=== PATIENT | female | born 1975 | race Caucasian/White ===

== ENCOUNTER 2019-09-21 14:41 | Emergency (ER) | payer OTHER, SELFPAY ==
[2019-09-21] MEDS ORDERED: LORAZEPAM 0.5 MG TABLET ONE (15:20)
[2019-09-21 15:49] LABS: Absolute Lymphocytes (CBC) 2.1 K/uL (0.7-4.9); Basophils % 0.9 % (0-1.3); Hematocrit 45.5 % (36.0-45.0); Lymphocytes % 22.3 % (15.3-44.8); MPV 7.5 fL (7.6-11.3); RBC Red Blood Cell Count 4.93 M/uL (3.86-4.86)
[2019-09-21 16:16] LABS: Thyroid Stimulating Hormone 2.01 uIU/mL (0.360-3.740)
[2019-09-21 16:20] LABS: Potassium 4.5 mmol/L (3.5-5.1)
[2019-09-21] MEDS ORDERED: INSULIN -REGULAR HUMAN 50 UNIT/0.5 ML ML ONE (17:43)
[2019-09-21] MEDS ORDERED: NA CHLORIDE 0.9% 500 ML ONE (17:43)
--- NOTE | 2019-09-21 18:35 | ER ---
Nurse's Notes [facility] Name: Chelsi Brice Age: 44 yrs Sex: Female : 1975 Arrival Date: 09/21/2019 Time: 14:42 Bed 18 Private MD: Diagnosis: Chest pain, unspecified;Dehydration Presentation: 09/20 14:53 Chief complaint: Patient states: Reports having a AL 1 month ago, 2 stents placed at [address] in [place], started having non-radiating mid-sternal chest pressure this morning, rated 3/10. Coronavirus screen: The patient has NOT traveled to a country currently being monitored by the [facility] within the last 14 days. Proceed with normal triage procedures. Ebola Screen: No symptoms or risks identified at this time. Initial Sepsis Screen: Does the patient meet any 2 criteria? No. Patient's initial sepsis screen is negative. Does the patient have a suspected source of infection? No. Patient's initial sepsis screen is negative. Risk Assessment: Do you want to hurt yourself or someone else? Patient reports no desire to harm self or others. Onset of symptoms was September 21, 2019 at 09:00. 14:53 Method Of Arrival: Ambulatory [facility] 14:53 Acuity: EDIS 3 jl7 Triage Assessment: 14:57 General: Appears in no apparent distress. uncomfortable, Behavior is calm, cooperative, jl7 appropriate for age. Pain: Complains of pain in mid-sternal area Pain does not radiate. Pain currently is 3 out of 10 on a pain scale. Quality of pain is described as pressure, Pain began Is continuous. Cardiovascular: Patient's skin is warm and dry. 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 - Social history:: Smoking status: Patient/guardian denies using tobacco, Stopped _ months ago 1. Screenin:13 Abuse screen: Denies threats or abuse. Nutritional screening: No deficits noted. rb1 Tuberculosis screening: No symptoms or risk factors identified. Fall Risk None identified. Assessment: 15:13 General: Appears in no apparent distress. comfortable, Behavior is anxious, Denies rb1 fever. Pain: Complains of pain in mid-sternal area Pain currently is 2 out of 10 on a pain scale. Quality of pain is described as pressure. Neuro: Level of Consciousness is awake, alert, obeys commands, Oriented to person, place, time, situation, Pt. is trembling but reports that is normal for her.. Denies headache. Neuro: Denies blurred vision. Cardiovascular: Capillary refill < 3 seconds is brisk in bilateral fingers. Respiratory: Airway is patent Respiratory effort is even, unlabored, Respiratory pattern is regular, symmetrical. Respiratory: Reports shortness of breath Denies cough. GI: No signs and/or symptoms were reported involving the gastrointestinal system. : No signs and/or symptoms were reported regarding the genitourinary system. Derm: Skin is pink, warm \T\ dry. Musculoskeletal: Range of motion: intact in all extremities. 16:10 Reassessment: Patient appears in no apparent distress at this time. Patient and/or rb1 family updated on plan of care and expected duration. Pain level reassessed. Patient is alert, oriented x 3, equal unlabored respirations, skin warm/dry/pink. Patient states feeling better. 17:10 Reassessment: Patient appears in no apparent distress at this time. No changes from rb1 previously documented assessment. Family at the bedside. 17:56 Reassessment: Pt c/o pain at the IV site, IV infiltrated, minimal swelling noted, no rb1 redness noted. Provider notified. Received verbal order to discontinue the IV fluids and the pt. can watch her BS at home and take her home insulin. 100% read back. 18:35 Reassessment: Patient appears in no apparent distress at this time. Patient and/or rb1 family updated on plan of care and expected duration. Pain level reassessed. Patient is alert, oriented x 3, equal unlabored respirations, skin warm/dry/pink. Patient states feeling better. Vital Signs: 14:53 BP 136 / 95; Pulse 91; Resp 16; Temp 98.2(O); Pulse Ox 99% on R/A; Pain 3/10; jl7 15:51 BP 131 / 93; Pulse 83; Resp 14; Temp 98.0(O); Pulse Ox 94% on R/A; mh5 16:54 BP 111 / 76; Pulse 80; Resp 16; Temp 97.9(TE); Pulse Ox 97% on R/A; mh5 17:54 BP 112 / 78; Pulse 85; Resp 14; Pulse Ox 100% on R/A; rb1 18:35 BP 111 / 73; Pulse 81; Resp 16; Pulse Ox 95% on R/A; rb1 ED Course: 14:42 Patient arrived in ED. ag5 14:55 Triage completed. jl7 14:57 Arm band placed on right wrist. jl7 15:13 Elda Sims, RN is Primary Nurse. rb1 15:13 Patient has correct armband on for positive identification. Placed in gown. Bed in low rb1 position. Call light in reach. Side rails up X 1. monitor car operator on. Pulse ox on. NIBP on. Warm blanket given. 15:13 Patient maintains SpO2 saturation greater than 95% on room air. rb1 15:21 Claud[facility] Dav[facility]-C [facility]. snw 15:21 Oli Plaza MD is Attending Physician. snw 15:50 Initial lab(s) drawn, by il, sent to lab. Inserted saline lock: 22 gauge in right 5 antecubital area, using aseptic technique. Blood collected. 15:54 Chem 7 Sent. 5 15:54 CBC with Diff Sent. [facility] 15:54 TSH Sent. [facility] 15:54 Troponin (emerg Dept Use Only) Sent. [facility] 18:50 No provider procedures requiring assistance completed. IV discontinued, intact, rb1 bleeding controlled, No redness/swelling at site. Pressure dressing applied. Administered Medications: 15:17 Drug: Ativan 0.5 mg Route: PO; rb1 17:45 Drug: NS 0.9% 500 ml Route: IV; Rate: bolus; Site: right antecubital; rb1 17:45 Drug: Insulin Regular Human 2 units {Co-Signature: mg2 (Sean Cast RN).} Route: rb1 IVP; Site: right antecubital; Outcome: 18:33 Discharge ordered by . snw 18:50 Discharged to home ambulatory, with family. rb1 18:50 Condition: stable 18:50 Discharge instructions given to patient, Instructed on discharge instructions, follow up and referral plans. medication usage, Demonstrated understanding of instructions, follow-up care, medications, Prescriptions given X 1. 18:51 Patient left the ED. rb1 Signatures: Claudia Davila, SILVICULTURE TEACHER-C SILVICULTURE TEACHER-Csnw Elda Sims, RN RN rb1 Leatha Hernández 5 Arjun Saunders RN RN jl7 Kaylah Hale 5 Sean Cast RN mg2
--- NOTE | 2019-09-21 18:36 | EDPHYS ---
Physician Documentation [facility] Name: Chelsi Brice Age: 44 yrs Sex: Female : 1975 Arrival Date: 09/21/2019 Time: 14:42 Bed 18 Private MD: ED Physician Oli Plaza HPI: 09/20 15:32 This 44 yrs old Female presents to ER via Ambulatory with complaints of Chest snw Pain, Shortness Of Breath. 15:32 Onset: The symptoms/episode began/occurred suddenly, this morning. Associated signs and snw symptoms: Pertinent positives: shortness of breath, anxiety. Modifying factors: The patient symptoms are alleviated by nothing. The patient has experienced similar episodes in the past, multiple times. pt had STEMI last month and is having trouble differentiating s/s of panic attack and NV. Stopped smoking but continues vaping. 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 - Social history:: Smoking status: Patient/guardian denies using tobacco, Stopped _ months ago 1. ROS: 15:30 Constitutional: Negative for fever, chills, and weight loss, Eyes: Negative for injury, snw pain, redness, and discharge, ENT: Negative for injury, pain, and discharge, Neck: Negative for injury, pain, and swelling. 15:30 Abdomen/GI: Negative for abdominal pain, nausea, vomiting, diarrhea, and constipation, Back: Negative for injury and pain, : Negative for injury, bleeding, discharge, and swelling, MS/Extremity: Negative for injury and deformity, Skin: Negative for injury, rash, and discoloration, Neuro: Negative for headache, weakness, numbness, tingling, and seizure. 15:30 Cardiovascular: Positive for chest pain. 15:30 Respiratory: Positive for shortness of breath, at rest. 15:30 Endocrine: Positive for night sweats. Exam: 15:30 Constitutional: This is a well developed, well nourished patient who is awake, alert, snw and anxious. Head/Face: Normocephalic, atraumatic. Eyes: Pupils equal round and reactive to light, extra-ocular motions intact. Lids and lashes normal. Conjunctiva and sclera are non-icteric and not injected. Cornea within normal limits. Periorbital areas with no swelling, redness, or edema. ENT: Nares patent. No nasal discharge, no septal abnormalities noted. Tympanic membranes are normal and external auditory canals are clear. Oropharynx with no redness, swelling, or masses, exudates, or evidence of obstruction, uvula midline. Mucous membranes moist. Neck: Trachea midline, no thyromegaly or masses palpated, and no cervical lymphadenopathy. Supple, full range of motion without nuchal rigidity, or vertebral point tenderness. No Meningismus. Chest/axilla: Normal chest wall appearance and motion. Nontender with no deformity. No lesions are appreciated. Cardiovascular: Regular rate and rhythm with a normal S1 and S2. No gallops, murmurs, or rubs. Normal PMI, no JVD. No pulse deficits. Respiratory: Lungs have equal breath sounds bilaterally, clear to auscultation and percussion. No rales, rhonchi or wheezes noted. No increased work of breathing, no retractions or nasal flaring. Abdomen/GI: Soft, non-tender, with normal bowel sounds. No distension or tympany. No guarding or rebound. No evidence of tenderness throughout. Back: No spinal tenderness. No costovertebral tenderness. Full range of motion. Skin: Warm, dry with normal turgor. Normal color with no rashes, no lesions, and no evidence of cellulitis. MS/ Extremity: Pulses equal, no cyanosis. Neurovascular intact. Full, normal range of motion. Neuro: Awake and alert, GCS 15, oriented to person, place, time, and situation. Cranial nerves II-XII grossly intact. Motor strength 5/5 in all extremities. Sensory grossly intact. Cerebellar exam normal. Normal gait. Psych: Awake, alert, with orientation to person, place and time. Behavior, mood, and affect are within normal limits. Vital Signs: 14:53 BP 136 / 95; Pulse 91; Resp 16; Temp 98.2(O); Pulse Ox 99% on R/A; Pain 3/10; jl7 15:51 BP 131 / 93; Pulse 83; Resp 14; Temp 98.0(O); Pulse Ox 94% on R/A; mh5 16:54 BP 111 / 76; Pulse 80; Resp 16; Temp 97.9(TE); Pulse Ox 97% on R/A; mh5 17:54 BP 112 / 78; Pulse 85; Resp 14; Pulse Ox 100% on R/A; rb1 18:35 BP 111 / 73; Pulse 81; Resp 16; Pulse Ox 95% on R/A; rb1 MDM: 15:23 Patient medically screened. snw 18:36 Data reviewed: vital signs, nurses notes. Data interpreted: Pulse oximetry: on room air snw is 100 %. Interpretation: normal. Counseling: I had a detailed discussion with the patient and/or guardian regarding: the historical points, exam findings, and any diagnostic results supporting the discharge/admit diagnosis, lab results, radiology results, the need for outpatient follow up, to return to the emergency department if symptoms worsen or persist or if there are any questions or concerns that arise at home. Counseling: I had a detailed discussion with the patient and/or guardian regarding: smoking cessation. Response to treatment: the patient's symptoms have resolved after treatment. Special discussion: Based on the patient's history, exam, and Dx evaluation, there is no indication for emergent intervention or inpatient Tx. It is understood by the patient/guardian that if the Sx's persist or worsen they need to return immediately for re-evaluation. Based on the history and exam findings, there is no indication for further emergent testing or inpatient evaluation. I discussed with the patient/guardian the need to see the wire lather for further evaluation of the symptoms. I discussed with the patient/guardian the need to see the primary care provider for further evaluation of the symptoms. 09/20 15:22 Order name: Troponin (emerg Dept Use Only) snw 09/20 15:30 Order name: TSH snw 09/20 15:30 Order name: CBC with Diff snw 09/20 15:30 Order name: Chem 7 snw 09/20 15:54 Order name: Glucose, Ancillary Testing; Complete Time: 15:55 EDMS 09/20 16:00 Order name: CBC with Automated Diff; Complete Time: 16:04 EDMS 09/20 15:22 Order name: EKG; Complete Time: 15:22 snw 09/20 15:22 Order name: EKG - Nurse/Tech; Complete Time: 15:25 snw 09/20 16:09 Order name: Troponin (Emerg Dept Use Only); Complete Time: 16:22 EDWI 09/20 16:21 Order name: Basic Metabolic Panel; Complete Time: 16:22 EDWI 09/20 16:21 Order name: Thyroid Stimulating Hormone; Complete Time: 16:22 [facility] 09/20 15:22 Order name: FSBS; Complete Time: 15:54 snw Administered Medications: 15:17 Drug: Ativan 0.5 mg Route: PO; rb1 17:45 Drug: NS 0.9% 500 ml Route: IV; Rate: bolus; Site: right antecubital; rb1 17:45 Drug: Insulin Regular Human 2 units {Co-Signature: mg2 (Sean Cast RN).} Route: rb1 IVP; Site: right antecubital; Disposition: 09/21 07:59 Co-signature as Attending Physician, Oli Plaza MD I agree with the assessment and kdr plan of care. Disposition: 09/21/19 18:33 Discharged to Home. Impression: Chest pain, unspecified, Dehydration. - Condition is Stable. - Discharge Instructions: Nonspecific Chest Pain, Hyperglycemia, Smoking Hazards, Form - Daily Diabetes Record, Rehydration, Adult. - Prescriptions for promethazine 25 mg Oral Tablet - take 1 tablet by ORAL route every 6 hours As needed; 20 tablet. - Work release form, Medication Reconciliation Form, Thank You Letter, Antibiotic Education, Prescription Opioid Use form. - Follow up: Emergency Department; When: As needed; Reason: Worsening of condition. Follow up: Private Physician; When: 2 - 3 days; Reason: Recheck today's complaints, Continuance of care, Re-evaluation by your physician. Signatures: Dispatcher [employer] [facility] Oli Plaza MD MD kdr Therrien, Shelly, PUBLICATIONS SALES REPRESENTATIVE-C PUBLICATIONS SALES REPRESENTATIVE-Csnw Elda Sims, RN RN rb1 Arjun Saunders RN RN jl7 Sean Cast RN mg2 Corrections: (The following items were deleted from the chart) 09/20 18:51 18:33 09/21/2019 18:33 Discharged to Home. Impression: Chest pain, unspecified; rb1 Dehydration. Condition is Stable. Forms are Medication Reconciliation Form, Thank You Letter, Antibiotic Education, Prescription Opioid Use. Follow up: Emergency Department; When: As needed; Reason: Worsening of condition. Follow up: Private Physician; When: 2 - 3 days; Reason: Recheck today's complaints, Continuance of care, Re-evaluation by your physician. bita
[2019-09-21 19:37] VITALS: TEMP 97.9
[2019-09-21 19:40] VITALS: BP 111/73; O2SAT 95
--- NOTE | 2019-09-22 07:30 | EKG ---
Test Date: 2019-09-21 Test Time: 15:17:52 Relay Checker: DARA MEASUREMENT RESULTS: Intervals: Rate: 88 IN: 158 QRSD: 74 QT: 366 QTc: 442 [place]: P: 56 IN: 158 QRS: 11 T: 55 INTERPRETIVE STATEMENTS: Normal sinus rhythm Low voltage QRS Borderline ECG No previous ECG available for comparison Electronically Signed On 09-22-19 07:27:54 CDT by Christopher Ferguson
== END 2019-09-21 18:51 | disposition home or self-care (01) ==
LOC: ER 14:41
DX: E86.0 Dehydration (principal); I25.2 Old myocardial infarction; F17.290 Nicotine dependence, other tobacco product, uncomplicated; Z95.818 Presence of other cardiac implants and grafts
CPT/HCPCS: 36415; 80048; 82947; 84443; 84484; 85025; 93005; 96374; 99285; J7040

== ENCOUNTER 2021-09-16 12:54 | Emergency (ER) | payer OTHER ==
--- OUTSIDE RECORDS SUMMARY | 2021-09-16 12:59 | XMS REPORT | Continuity of Care Document ---
:1975 Author Organization [facility] t Address [address] [place] [address] Care Team Providers Name Role Phone UNKNOWN Primary Care Physician Unavailable Demetria Muñoz Attending Clinician Unavailable Demetria Muñoz Attending Clinician Unavailable Lucina SAXENA Attending Clinician Unavailable YADIEL BILLINGSLEY M.D. Attending Clinician Unavailable Demetria Muñoz Admitting Clinician Unavailable Lucina SAXENA Admitting Clinician Unavailable YADIEL BILLINGSLEY M.D. Admitting Clinician Unavailable Problems This patient has no known problems. Allergies, Adverse Reactions, Alerts Allergy Allergy Status Severity Reaction(s) Onset Inactive Treating Comm ents Source Name Type Date Date Clinician No Known DA Active [facility] Drug 4-16 Allergie 00:00: s 00 NO KNOWN Allergy Active [facility] No Known Drug Active [facility] Medications This patient has no known medications. Vital Signs Vital Name Observation Time Observation Value Comments Source Height/Length Measured 2021-07-29 12:48:17 157.4 cm Height/Length Dosing 2021-07-29 12:48:17 157.48 cm Weight Dosing 2021-07-29 12:48:17 97.52 kg Height/Length Measured 2021-07-29 12:46:32 157.4 cm Height/Length Dosing 2021-07-29 12:46:32 157.48 cm Weight Dosing 2021-07-29 12:46:32 97.52 kg Height/Length Measured 2021-07-29 12:45:51 157.4 cm Height/Length Dosing 2021-07-29 12:45:51 157.48 cm Weight Dosing 2021-07-29 12:45:51 97.52 kg Height/Length Measured 2021-07-29 12:44:39 157.4 cm Height/Length Dosing 2021-07-29 12:44:39 157.48 cm Weight Dosing 2021-07-29 12:44:39 97.52 kg Height/Length Measured 2021-07-29 12:44:23 157.4 cm Height/Length Dosing 2021-07-29 12:44:23 157.48 cm Weight Dosing 2021-07-29 12:44:23 97.52 kg Height/Length Measured 2021-07-29 12:44:06 157.4 cm Height/Length Dosing 2021-07-29 12:44:06 157.48 cm Weight Dosing 2021-07-29 12:44:06 97.52 kg Height/Length Measured 2021-07-29 12:43:45 157.5 cm Height/Length Dosing 2021-07-29 12:43:45 157.48 cm Weight Dosing 2021-07-29 12:43:45 97.52 kg Height/Length Measured 2021-07-29 12:43:44 157.5 cm Height/Length Measured 2021-07-29 12:43:41 157.5 cm Height/Length Measured 2021-07-29 12:43:39 157.5 cm Height/Length Measured 2021-07-29 12:43:38 157.5 cm Height/Length Measured 2020-04-16 01:26:37 Height/Length Measured 2020-04-16 01:06:56 Weight Dosing 2020-04-15 23:58:21 Height/Length Dosing 2020-04-15 23:58:21 Height/Length Measured 2020-04-15 19:32:32 02 Sat by Pulse Oximetry 2020-11-20 15:15:30 99 /min Body Mass Index 2020-11-20 15:15:30 47.2 Height 2020-11-20 15:15:30 154.94\\S\\61 Pulse Rate 2020-11-20 15:15:30 73 /min Pulse Strength 2020-11-20 15:15:30 Normal /min Pulse Assessment Method 2020-11-20 15:15:30 Palpation /min Respiratory Rate 2020-11-20 15:15:30 12 /min Weight 2020-11-20 15:15:30 011437.092\\S\\4000 Weight Measurement Method 2020-11-20 15:15:30 Estimated by Patient 02 Sat by Pulse Oximetry 2020-10-30 10:08:11 99 /min Body Mass Index 2020-10-30 10:08:11 47.2 Height 2020-10-30 10:08:11 154.94\\S\\61 Pulse Rate 2020-10-30 10:08:11 73 /min Pulse Strength 2020-10-30 10:08:11 Normal /min Pulse Assessment Method 2020-10-30 10:08:11 Palpation /min Respiratory Rate 2020-10-30 10:08:11 12 /min Weight 2020-10-30 10:08:11 437509.092\\S\\4000 Weight Measurement Method 2020-10-30 10:08:11 Estimated by Patient 02 Sat by Pulse Oximetry 2020-10-26 00:12:00 99 /min Body Mass Index 2020-10-26 00:12:00 47.2 Height 2020-10-26 00:12:00 154.94\\S\\61 Pulse Rate 2020-10-26 00:12:00 73 /min Pulse Strength 2020-10-26 00:12:00 Normal /min Pulse Assessment Method 2020-10-26 00:12:00 Palpation /min Respiratory Rate 2020-10-26 00:12:00 12 /min Weight 2020-10-26 00:12:00 [id number]\\S\\4000 Weight Measurement Method 2020-10-26 00:12:00 Estimated by Patient Body Mass Index 2020-10-25 10:07:51 47.2 Height 2020-10-25 10:07:51 154.94\\S\\61 Weight 2020-10-25 10:07:51 750997.092\\S\\4000 Weight Measurement Method 2020-10-25 10:07:51 Estimated by Patient WEIGHT 2020-10-25 10:06:00 113.043601 kg HEIGHT 2020-10-25 10:06:00 154.94 cm Procedures This patient has no known procedures. Encounters Start End Encounter Admission Attending Care Care Encounter Source Date/Time Date/Time Type Type Clinicians Facility Department ID 2020-04-15 2020-04-19 Inpatient 1 Gregorio Muñoz [facility] PSY [id number] St. 19:14:00 14:20:00 Gregorio Muñoz [facility] 2020-04-15 2020-04-15 Inpatient 1 Gregorio Muñoz [facility] PSY [id number] St. 19:14:00 19:14:00 Gregorio Muñoz -2019 1005 [facility] Results Test Description Test Time Test Comments Results Result Comments Source POC Glucose 2020-04-19 12:03:31 Test Item Value Reference Range Interpretation Comme nts Glucose POC (test code = 265 mg/dL 70-115 H Not fara RN or MDIf you consider your Glucose POC) patient critica lly ill, the [employer] Infrom II meter should not be u sed for Glucose determination. Draw a venous Glucose and send to the main Lab for analysis. POC [id number] 06:15:01 Test Item Value Reference Range Interpretation Comments Glucose POC (test 268 mg/dL 70-115 H Notify RN or MDIf you code = Glucose POC) consider your patient critically ill, the [employer] Infrom II meter should not be used for Glucos e determination. Draw a venous Glucose and send to the main Lab for analysis. POC [id number] 19:20:02 Test Item Value Reference Range Interpretation Comments Glucose POC (test 328 mg/dL 70-115 H If you con nuclear waste process operator your code = Glucose POC) patient critically ill, the [employer] Check Infrom II meter should not be used for Glucose determination. Draw a venous Glucose and send to the main Lab for analysis. POC [id number] 16:23:31 Test Item Value Reference Range Interpretation Comments Glucose POC (test 245 mg/dL 70-115 H Notify RN or MDIf you code = Glucose POC) consider your patient critically ill, the [employer] Infrom II meter should not be used for Glucos e determination. Draw a venous Glucose and send to the main Lab for analysis. POC [id number] 11:46:01 Test Item Value Reference Range Interpretation Comments Glucose POC (test 207 mg/dL 70-115 H Notify RN or MDIf you code = Glucose POC) consider your patient critically ill, the [employer] Infrom II meter should not be used for Glucos e determination. Draw a venous Glucose and send to the main Lab for analysis. POC [id number] 05:59:29 Test Item Value Reference Range Interpretation Comments Glucose POC (test 209 mg/dL 70-115 H If you con nuclear waste process operator your code = Glucose POC) patient critically ill, the [employer] Check Infrom II meter should not be used for Glucose determination. Draw a venous Glucose and send to the main Lab for analysis. POC [id number] 19:22:06 Test Item Value Reference Range Interpretation Comments Glucose POC (test 248 mg/dL 70-115 H Notify RN or MDIf you code = Glucose POC) consider your patient critically ill, the [employer] Infrom II meter should not be used for Glucos e determination. Draw a venous Glucose and send to the main Lab for analysis. POC [id number] 16:07:29 Test Item Value Reference Range Interpretation Comments Glucose POC (test 234 mg/dL 70-115 H If you con nuclear waste process operator your code = Glucose POC) patient critically ill, the [employer] Check Infrom II meter should not be used for Glucose determination. Draw a venous Glucose and send to the main Lab for analysis. POC [id number] 12:08:04 Test Item Value Reference Range Interpretation Comments Glucose POC (test 228 mg/dL 70-115 H Notify RN or MDIf you code = Glucose POC) consider your patient critically ill, the [employer] k Infrom II meter should not be used for Glucos e determination. Draw a venous Glucose and send to the main Lab for analysis. POC [id number] 07:42:04 Test Item Value Reference Range Interpretation Comments Glucose POC (test 225 mg/dL 70-115 H Notify RN or MDIf you code = Glucose POC) consider your patient critically ill, the [employer] Infrom II meter should not be used for Glucos e determination. Draw a venous Glucose and send to the main Lab for analysis. RPR [id number] 21:08:15 Test Item Value Reference Range Interpretation Comments RPR Qual (test code = RPR Qual) Non-Reactive Non-Reactive Reactive Control (test code = Reactive Reactive Control) Weak Reactive Control (test Weak Reactive code = Weak Reactive Control) Non-Reactive Control (test code Non-Reactive = Non-Reactive Control) Lot # (test code = Lot #) [id number] Expiration Dt (test code = 04-10-2021 N Expiration Dt) POC [id number] 19:40:57 Test Item Value Reference Range Interpretation Comments Glucose POC (test 312 mg/dL 70-115 H If you con nuclear waste process operator your code = Glucose POC) patient critically ill, the [employer] Check Infrom II meter should not be used for Glucose determination. Draw a venous Glucose and send to the main Lab for analysis. POC [id number] 15:02:57 Test Item Value Reference Range Interpretation Comments Glucose POC (test 288 mg/dL 70-115 H Notify RN or MDIf you code = Glucose POC) consider your patient critically ill, the [employer] Infrom II meter should not be used for Glucos e determination. Draw a venous Glucose and send to the main Lab for analysis. POC [id number] 11:08:28 Test Item Value Reference Range Interpretation Comments Glucose POC (test 210 mg/dL 70-115 H Notify RN or MDIf you code = Glucose POC) consider your patient critically ill, the [employer] k Infrom II meter should not be used for Glucos e determination. Draw a venous Glucose and send to the main Lab for analysis. Urine [id number] 08:33:09 Test Item Value Reference Range Interpretation Comments ORGANISM (test code = Escherichia coli ORGANISM) Amikacin (test code = S Amik) Ampicillin (test code = S Amp) Ampicillin/Sulbactam S (test code = Amp/Sul) Cefazolin (test code = S Cefaz) Cefepime (test code = S Cefep) Cefotaxime (test code = S Cefo) Ceftazidime (test code = S Ceftaz) Ceftriaxone (test code = S Ceftri) Cefuroxime (test code = S Cefur) Ciprofloxacin (test code R = Cipro) Gentamicin (test code = S Gent) Imipenem (test code = S Imi) Levofloxacin (test code R = Levo) Meropenem (test code = S Joanna) Nitrofurantoin (test S code = Nitro) Piperacillin/Tazobactam S (test code = Pip/Jesus) Tobramycin (test code = S Tobra) Trimethoprim/Sulfa (test S code = SXT) ORGANISM (test code = Klebsiella pneumoniae ORGANISM3) Amikacin (test code = S Amik) Ampicillin (test code = R Amp) Ampicillin/Sulbactam R (test code = Amp/Sul) Cefazolin (test code = R Cefaz) Cefepime (test code = S Cefep) Cefotaxime (test code = S Cefo) Ceftazidime (test code = S Ceftaz) Ceftriaxone (test code = R Ceftri) Cefuroxime (test code = I Cefur) Ciprofloxacin (test code R = Cipro) Gentamicin (test code = S Gent) Imipenem (test code = S Imi) Levofloxacin (test code R = Levo) Meropenem (test code = S Joanna) Nitrofurantoin (test S code = Nitro) Piperacillin/Tazobactam S (test code = Pip/Jesus) Tobramycin (test code = S Tobra) Trimethoprim/Sulfa (test S code = SXT) Final Report (test code >=100,000 cfu/ml = Final Report) Escherichia coli >=100,000 cfu/ml Klebsiella pneumoniae >=100,000 cfu/ml Diphtheroids C Urine Added by [id number] 08:28:37 Test Item Value Reference Range Interpretation Comments Cholesterol Total 139 mg/dL N Low-risk l evel (test code = (desirable) - < 200 Cholesterol Total) mg/dlMode rate-risk level (borderli ne) - 200-239 mg/dlHigh-risk level - ?240 mg/dl Triglycerides (test 180 mg/dL N Normal - <150 code = Triglycerides) mg/dlB orderline high - 150-199 mg/dl High - 200-499 mg/dl Very high - ?500 mg/ dl HDL (test code = HDL) 41.50 mg/dL N Low-ri sk level (desirable) - ? 60 mg/dlHigh-risk level (undesirable) - <40 mg/dl LDL (test code = LDL) 62 mg/dL N The eq uation being used in this calculation is LDL = (Chol - HDL) - (Trig / 5) VLDL (test code = 36 mg/dL 5-40 The equati on being VLDL) used in this calculation is VLDL = Trig / 5 Chol/HDL (test code = 3.3 ratio <=5.0 Chol/HDL) LDL/HDL Ratio (test 3 N The equa tion being code = LDL/HDL Ratio) used i n this calculation is LDL/HDL Ratio=L DL Calc/HDL Chol Thyroid Stimulating [id number] 08:28:37 Test Item Value Reference Range Interpretation Comments TSH (test code = TSH) 3.062 mcIU/mL 0.550-4.780 Hemoglobin [id number] 08:26:29 Test Item Value Reference Range Interpretation Comments Hemoglobin A1c (test code 10.1 % 4.0-5.8 H Di abetic >=6.5 = Hemoglobin A1c) %Prediabet es 5.7-6.4 %Normal <5.7 % POC [id number] 06:21:26 Test Item Value Reference Range Interpretation Comments Glucose POC (test 161 mg/dL 70-115 H If you con nuclear waste process operator your code = Glucose POC) patient critically ill, the M[employer]ica-Accu Check Infrom II meter should not be used for Glucose determination. Draw a venous Glucose and send to the main Lab for analysis. Novel Coronavirus SARS-CoV-2, [id number] 23:27:42 Test Item Value Reference Range Interpretation Comments SARS-CoV-2 PCR NEGATIVE Negative Positive resu lts are (test code = indicative of a ctive SARS-CoV-2 PCR) infection wi th SARS-CoV-2; clinical correl ation with patient history and other diagnostic info rmation is necessary to de termine patient infecti on status.Presumpt angel luis positive result s -INTERPRET WITH CAUTION: Resul t may not reflect if sidra ent is actually positi ve. Patient should be treat ed based on clinical suspic ions. Negative result s do not preclude SARS-C oV-2 infection and s hould not be used as the sole basis for treatment o r other patient managem ent decisions. Nega tive results must be combined with clinical observations, p atient history, and epidemiological information.The Xpert Xpress SARS-CoV -2 test is only for use un becky the Food and Drug Administration s Emergency Use Authorization." Urinalysis [id number] 20:43:53 Test Item Value Reference Range Interpretation Comments UA WBC (test code = UA WBC) 11-19 0-5 A UA RBC (test code = UA RBC) 6-10 0-5 A UA Bacteria (test code = UA Bacteria) Many A UA Squam Epithelial (test code = UA 11-19 A Squam Epithelial) UA Trans Epithelial (test code = UA 1-4 A Trans Epithelial) Comprehensive Metabolic [id number] 20:38:53 Test Item Value Reference Range Interpretation Comments Sodium Level (test code = Sodium 135.0 mmol/L 136.0-145.0 L Level) Potassium Level (test code = 4.30 mmol/L 3.50-5.10 Potassium Level) Chloride Level (test code = 101.0 mmol/L 98.0-107.0 Chloride Level) CO2 (test code = CO2) 25 mmol/L 20-31 Anion Gap (test code = Anion 9.0 mmol/L 5.0-15.0 Gap) BUN (test code = BUN) 12 mg/dL 9-23 Creatinine Level (test code = 0.86 mg/dL 0.55-1.02 Creatinine Level) BUN/Creat Ratio (test code = 14.0 ratio 10.0-20.0 BUN/Creat Ratio) Glucose Level (test code = 261 mg/dL 74-106 H Glucose Level) Calcium Level (test code = 9.1 mg/dL 8.3-10.6 Calcium Level) Alk Phos (test code = Alk Phos) 89 U/L 46-116 Bilirubin Total (test code = 0.5 mg/dL 0.2-1.1 Bilirubin Total) Albumin Level (test code = 4.8 g/dL 3.2-4.8 Albumin Level) Protein Total (test code = 6.7 g/dL 5.7-8.2 Protein Total) ALT (test code = ALT) 25 U/L 10-49 AST (test code = AST) 19 U/L <=34 Globulin (test code = Globulin) 1.9 g/dL 2.3-3.5 L A/G Ratio (test code = A/G 2.5 g/dL 0.8-2.0 H Ratio) Hemolysis (test code = 0 g/dL 1-2 H Hemolysis) Icterus (test code = Icterus) 0 g/dL 1-2 H Lipemia (test code = Lipemia) 0 g/dL 1-2 H Comprehensive Metabolic [id number] 20:38:53 Test Item Value Reference Range Interpretation Comments Sodium Level (test 135.0 mmol/L 136.0-145.0 L code = Sodium Level) Potassium Level 4.30 mmol/L 3.50-5.10 (test code = Potassium Level) Chloride Level (test 101.0 mmol/L 98.0-107.0 code = Chloride Level) CO2 (test code = 25 mmol/L 20-31 CO2) Anion Gap (test code 9.0 mmol/L 5.0-15.0 = Anion Gap) BUN (test code = 12 mg/dL 9-23 BUN) Creatinine Level 0.86 mg/dL 0.55-1.02 (test code = Creatinine Level) BUN/Creat Ratio 14.0 ratio 10.0-20.0 (test code = BUN/Creat Ratio) Glucose Level (test 261 mg/dL 74-106 H code = Glucose Level) Calcium Level (test 9.1 mg/dL 8.3-10.6 code = Calcium Level) Alk Phos (test code 89 U/L 46-116 = Alk Phos) Bilirubin Total 0.5 mg/dL 0.2-1.1 (test code = Bilirubin Total) Albumin Level (test 4.8 g/dL 3.2-4.8 code = Albumin Level) Protein Total (test 6.7 g/dL 5.7-8.2 code = Protein Total) ALT (test code = 25 U/L 10-49 ALT) AST (test code = 19 U/L <=34 AST) Globulin (test code 1.9 g/dL 2.3-3.5 L = Globulin) A/G Ratio (test code 2.5 g/dL 0.8-2.0 H = A/G Ratio) eGFR AA (test code = >60 >=60 eGFR (e stimated eGFR AA) mL/min/1.73 m2 Glomerular Filtration Rate ) is an estimated va lue, calculated from the patient's serum creatinine usin g the MDRD equation. It is NOT the patient 's actual GFR. The eGFR provides a more clinically usef ul measure of kidn ey disease than se rum creatinine alone.This calculation raúl es sex and race in to account, if the information is provided. If th e race is not provided, and t he patient is -Alissa n, multiply by 1.2 12. If sex is not provided, and t he patient is fema le, multiply by 0.7 42. Results for pat ients <18 years of ag e have not been validated by th e MDRD study and should be interpreted wit h caution. eGFR R esult Interpretation: eGFR > or = 60 is in the Normal RangeeGF R < 60 may mean kid samantha diseaseeGFR < 1 5 may mean kidney failure Rang es recommended by the National Kidney Foundation, http://nkdep.ni h.gov Hemolysis (test code 0 g/dL 1-2 H = Hemolysis) Icterus (test code = 0 g/dL 1-2 H Icterus) Lipemia (test code = 0 g/dL 1-2 H Lipemia) Alcohol [id number] 20:38:53 Test Item Value Reference Range Interpretation Comments Ethanol Level 15.5 mg/dL N The pharmacolo gical (test code = response to blo od alcohol Ethanol Level) levels may va ry from individual to i ndividual. The fatal isra ntration has been report ed to be >400 mg/dl. Comprehensive Metabolic [id number] 20:38:53 Test Item Value Reference Range Interpretation Comments Sodium Level (test 135.0 mmol/L 136.0-145.0 L code = Sodium Level) Potassium Level 4.30 mmol/L 3.50-5.10 (test code = Potassium Level) Chloride Level (test 101.0 mmol/L 98.0-107.0 code = Chloride Level) CO2 (test code = 25 mmol/L 20-31 CO2) Anion Gap (test code 9.0 mmol/L 5.0-15.0 = Anion Gap) BUN (test code = 12 mg/dL 9-23 BUN) Creatinine Level 0.86 mg/dL 0.55-1.02 (test code = Creatinine Level) BUN/Creat Ratio 14.0 ratio 10.0-20.0 (test code = BUN/Creat Ratio) Glucose Level (test 261 mg/dL 74-106 H code = Glucose Level) Calcium Level (test 9.1 mg/dL 8.3-10.6 code = Calcium Level) Alk Phos (test code 89 U/L 46-116 = Alk Phos) Bilirubin Total 0.5 mg/dL 0.2-1.1 (test code = Bilirubin Total) Albumin Level (test 4.8 g/dL 3.2-4.8 code = Albumin Level) Protein Total (test 6.7 g/dL 5.7-8.2 code = Protein Total) ALT (test code = 25 U/L 10-49 ALT) AST (test code = 19 U/L <=34 AST) Globulin (test code 1.9 g/dL 2.3-3.5 L = Globulin) A/G Ratio (test code 2.5 g/dL 0.8-2.0 H = A/G Ratio) eGFR AA (test code = >60 >=60 eGFR (e stimated eGFR AA) mL/min/1.73 m2 Glomerular Filtration Rate ) is an estimated va lue, calculated from the patient's serum creatinine usin g the MDRD equation. It is NOT the patient 's actual GFR. The eGFR provides a more clinically usef ul measure of kidn ey disease than se rum creatinine alone.This calculation raúl es sex and race in to account, if the information is provided. If th e race is not provided, and t he patient is -Alissa n, multiply by 1.2 12. If sex is not provided, and t he patient is fema le, multiply by 0.7 42. Results for pat ients <18 years of ag e have not been validated by th e MDRD study and should be interpreted wit h caution. eGFR R esult Interpretation: eGFR > or = 60 is in the Normal RangeeGF R < 60 may mean kid samantha diseaseeGFR < 1 5 may mean kidney failure Rang es recommended by the National Kidney Foundation, http://nkdep.ni h.gov eGFR Non-AA (test >60.00 >=60.00 eGFR (og mated code = eGFR Non-AA) mL/min/1.73 m2 Glomer ular Filtration Rate ) is an estimated va lue, calculated from the patient's serum creatinine usin g the MDRD equation. It is NOT the patient 's actual GFR. The eGFR provides a more clinically usef ul measure of kidn ey disease than se rum creatinine alone.This calculation raúl es sex and race in to account, if the information is provided. If th e race is not provided, and t he patient is -Alissa n, multiply by 1.2 12. If sex is not provided, and t he patient is fema le, multiply by 0.7 42. Results for pat ients <18 years of ag e have not been validated by th e MDRD study and should be interpreted wit h caution. eGFR R esult Interpretation: eGFR > or = 60 is in the Normal RangeeGF R < 60 may mean kid samantha diseaseeGFR < 1 5 may mean kidney failure Rang es recommended by the National Kidney Foundation, http://nkdep.ni h.gov Hemolysis (test code 0 g/dL 1-2 H = Hemolysis) Icterus (test code = 0 g/dL 1-2 H Icterus) Lipemia (test code = 0 g/dL 1-2 H Lipemia) Urinalysis with Culture, if [id number] 20:35:26 Test Item Value Reference Range Interpretation Comments UA Color (test code = UA YELLO Yellow Color) UA Appear (test code = UA CLEAR Clear Appear) UA pH (test code = UA pH) 6.0 UA Spec Grav (test code = UA 1.020 1.001-1.035 Spec Grav) UA Glucose (test code = UA 500 mg/dL N Glucose) UA Bili (test code = UA Bili) NEG Negative UA Ketones (test code = UA 80 mg/dL N Ketones) UA Blood (test code = UA MOD Negative A Blood) UA Protein (test code = UA trace mg/dL N Protein) UA Urobilinogen (test code = 2 mg/dL N UA Urobilinogen) UA Nitrite (test code = UA POS Negative A Nitrite) UA Leuk Est (test code = UA trace cells/mcL N Leuk Est) UA Micro Ind? (test code = UA Indicated Not Indicated A Micro Ind?) HCG Qualitative [id number] 20:34:01 Test Item Value Reference Range Interpretation Comments hCG Ur (test code = Negative If the r esult is hCG Ur) "Negative" in p atients suspected to be , recom mend retest with a s ample obtained 48 to 72 hours later, or by ordering a quantitative as say. If the result i s "Borderline" te sting should be repea jazmín in 48 to 72 hours. Lot # (test code = [id number] N Lot #) Expiration Dt (test 03-11-21 N code = Expiration Dt) Neg Control (test Negative code = Neg Control) Pos Control (test Positive code = Pos Control) Internal QC (test Acceptable code = Internal QC) Urine [id number] 20:32:21 Test Item Value Reference Range Interpretation Comments Amphetamine Screen Ur Negative Negative The sp ecimen is (test code = presumptive pos itive Amphetamine Screen Ur) if th e analyte concentration i s equal to or greater t connell 1000 ng/ml.If confirmation of positive result is desired, please order Amphetamine Confirmation, U rine within 7 days. Barbiturate Screen Ur Negative Negative The sp ecimen is (test code = presumptive pos itive Barbiturate Screen Ur) if th e analyte concentration i s equal to or greater t connell 200 ng/ml.If confir mation of positive res ult is desired, please order Barbiturate Confirmation, U rine within 7 days. Benzodiazepines Ur Negative Negative The speci men is (test code = presumptive pos itive Benzodiazepines Ur) if the a nalyte concentration i s equal to or greater t connell 200 ng/ml.If confir mation of positive res ult is desired, please order Benzodiazephine Confirmation, U rine within 7 days. Cocaine Screen Ur (test Negative Negative The specimen is code = Cocaine Screen presum ptive positive Ur) if the analyte concentration i s equal to or greater t connell 300 ng/ml.If confir mation of positive res ult is desired, please order Cocaine Metabol ite Confirmation, U rine within 7 days. Opiate Screen Ur (test Negative Negative The s pecimen is code = Opiate Screen presump tive positive Ur) if the analyte concentration i s equal to or greater t connell 2000 ng/ml.If confirmation of positive result is desired, please order Opiate Confirm ation, Urine within 7 days. U PCP Scrn (test code = Negative Negative The specimen is U PCP Scrn) presumptive pos itive if the analyte concentration i s equal to or greater t connell 25 ng/ml.If confir mation of positive res ult is desired, please order Phencyclidine Confirmation, U rine within 7 days. Cannabinoid Screen Ur Negative Negative The sp ecimen is (test code = presumptive pos itive Cannabinoid Screen Ur) if th e analyte concentration i s equal to or greater t connell 50 ng/ml.If confir mation of positive res ult is desired, please order Cannabinoid (TH C) Confirmation, U rine within 7 days. U Methadone Scr (test Negative Negative The sp ecimen is code = U Methadone Scr) pres umptive positive if the analyte concentration i s equal to or greater t connell 300 ng/ml.If confir mation of positive res ult is desired, please order Methadone Confirmation, U rine within 7 days. U Propoxyphene (test Negative Negative The spe cimen is code = U Propoxyphene) presu mptive positive if the analyte concentration i s equal to or greater t connell 300 ng/ml.If confir mation of positive res ult is desired, please order Propoxyphene Confirmation wi thin 7 days. Complete Blood Count with [id number] 20:26:44 Test Item Value Reference Range Interpretation Comments WBC (test code = WBC) 11.6 x10 4.4-10.5 H RBC (test code = RBC) 5.08 x10 3.75-5.20 Hgb (test code = Hgb) 15.1 g/dL 12.2-14.8 H MCV (test code = MCV) 90.60 fL 80.00-100.00 Hct (test code = Hct) 46.0 % 36.5-44.4 H MCHC (test code = 32.80 g/dL 32.00-37.50 MCHC) MCH (test code = MCH) 29.7 pg 27.0-32.5 RDW CV (test code = 13.7 % 11.5-14.5 RDW CV) Platelets (test code = 380.0 x10 140.0-440.0 Platelets) MPV (test code = MPV) 9.2 fL N Slide Review (test Auto Auto Result cr eated by code = Slide Review) GL_SJM_ SLIDE_REV_AUTO nRBC (test code = 0 N nRBC) NRBC Abs (test code = 0.00 x10 N NRBC Abs) Automated [id number] 20:26:44 Test Item Value Reference Range Interpretation Comments Neutro Auto (test code = Neutro 67.7 % 36.0-70.0 Auto) Lymph Auto (test code = Lymph Auto) 24.2 % 12.0-44.0 [place] Auto (test code = [place] Auto) 6.3 % 0.0-11.0 Eos, Auto (test code = Eos, Auto) 1.0 % 0.0-7.0 Basophil Auto (test code = Basophil 0.5 % 0.0-2.0 Auto) Neutro Absolute (test code = Neutro 7.8 x10 1.6-7.4 H Absolute) Lymph Absolute (test code = Lymph 2.81 x10 .50-4.60 Absolute) [place] Absolute (test code = [place] .73 x10 .00-1.20 Absolute) Eos Absolute (test code = Eos 0.12 x10 0.00-0.74 Absolute) Baso Absolute (test code = Baso 0.06 x10 0.00-0.21 Absolute) IG [id number] 20:26:44 Test Item Value Reference Range Interpretation Comments IG (test code = IG) 0.3 % 0.0-5.0 IG Abs (test code = IG Abs) 0 x10 N POC [id number] 19:31:55 Test Item Value Reference Range Interpretation Comments Glucose POC (test 235 mg/dL 70-115 H If you con nuclear waste process operator your code = Glucose POC) patient critically ill, the Mónica-Accu Check Infrom II meter should not be used for Glucose determination. Draw a venous Glucose and send to the main Lab for analysis. POCT-GLUCOSE [id number] 08:12:00 Test Item Value Reference Range Interpretation Comments POC-GLUCOSE METER 211 mg/dL 70-110 H : TESTED A T [facility] 6720 (BEAKER) (test code = LEONA HERNÁNDEZ MS, 1538) [address]: Open Hearth Melter/Techni kojo ID = [id number] for ALAN MCGEE CBC W/PLT COUNT & AUTO [id number] 03:50:00 Test Item Value Reference Range Interpretation Comments WHITE BLOOD CELL COUNT (BEAKER) 10.7 K/ L 3.5-10.5 H (test code = 775) RED BLOOD CELL COUNT (BEAKER) 4.95 M/ L 3.93-5.22 (test code = 761) HEMOGLOBIN (BEAKER) (test code = 15.1 GM/DL 11.2-15.7 410) HEMATOCRIT (BEAKER) (test code = 44.4 % 34.1-44.9 411) MEAN CORPUSCULAR VOLUME (BEAKER) 89.7 fL 79.4-94.8 (test code = 753) MEAN CORPUSCULAR HEMOGLOBIN 30.5 pg 25.6-32.2 (BEAKER) (test code = 751) MEAN CORPUSCULAR HEMOGLOBIN CONC 34.0 GM/DL 32.2-35.5 (BEAKER) (test code = 752) RED CELL DISTRIBUTION WIDTH 11.9 % 11.7-14.4 (BEAKER) (test code = 412) PLATELET COUNT (BEAKER) (test 299 K/CU MM 150-450 code = 756) MEAN PLATELET VOLUME (BEAKER) 9.0 fL 9.4-12.3 L (test code = 754) NUCLEATED RED BLOOD CELLS 0 /100 WBC 0-0 (BEAKER) (test code = 413) NEUTROPHILS RELATIVE PERCENT 58 % (BEAKER) (test code = 429) LYMPHOCYTES RELATIVE PERCENT 32 % (BEAKER) (test code = 430) MONOCYTES RELATIVE PERCENT 7 % (BEAKER) (test code = 431) EOSINOPHILS RELATIVE PERCENT 2 % (BEAKER) (test code = 432) BASOPHILS RELATIVE PERCENT 1 % (BEAKER) (test code = 437) NEUTROPHILS ABSOLUTE COUNT 6.20 K/ L 1.56-6.13 H (BEAKER) (test code = 670) LYMPHOCYTES ABSOLUTE COUNT 3.43 K/ L 1.18-3.74 (BEAKER) (test code = 414) MONOCYTES ABSOLUTE COUNT (BEAKER) 0.71 K/ L 0.24-0.36 H (test code = 415) EOSINOPHILS ABSOLUTE COUNT 0.18 K/ L 0.04-0.36 (BEAKER) (test code = 416) BASOPHILS ABSOLUTE COUNT (BEAKER) 0.08 K/ L 0.01-0.08 (test code = 417) IMMATURE GRANULOCYTES-RELATIVE 1 % 0-1 PERCENT (BEAKER) (test code = 2801) POCT-GLUCOSE [id number] 22:42:00 Test Item Value Reference Range Interpretation Comments POC-GLUCOSE METER 262 mg/dL 70-110 H : Notified RN/MD: (BEAKER) (test code = TESTED AT [facility] 3666 7827) [facility], [address]: Open Hearth Melter/Techni kojo ID = [id number] for MARIA D LIZARRAGA POCT-GLUCOSE [id number] 17:06:00 Test Item Value Reference Range Interpretation Comments POC-GLUCOSE METER 250 mg/dL 70-110 H : TESTED A T [facility] 6720 (BEAKER) (test code = [facility], 1538) [address]: Open [employer] Melter/Techni kojo ID = [id number] for DIPESH PINTONNE POCT-GLUCOSE [id number] 12:50:00 Test Item Value Reference Range Interpretation Comments POC-GLUCOSE METER 228 mg/dL 70-110 H : TESTED A T [facility] 6720 (BEAKER) (test code = [facility], 1538) [address]: [employer] H[employer] Melter/Techni kojo ID = [id number] for CATARINA-DIPESH GONZALEZNNE POCT-GLUCOSE [id number] 09:13:00 Test Item Value Reference Range Interpretation Comments POC-GLUCOSE METER 220 mg/dL 70-110 H : TESTED A T [facility] 6720 (BEAKER) (test code = [facility], 1538) [address]: Open H[employer] Melter/Techni kojo ID = [id number] for JACOB SANDERS BASIC METABOLIC [id number] 05:55:00 Test Item Value Reference Range Interpretation Comments SODIUM (BEAKER) (test 137 meq/L 136-145 code = 381) POTASSIUM (BEAKER) 4.3 meq/L 3.5-5.1 Specimen slightly (test code = 379) hemolyzed CHLORIDE (BEAKER) 105 meq/L 98-107 (test code = 382) CO2 (BEAKER) (test 23 meq/L 22-29 code = 355) BLOOD UREA NITROGEN 9 mg/dL 7-21 (BEAKER) (test code = 354) CREATININE (BEAKER) 0.70 mg/dL 0.57-1.25 Specimen slightly (test code = 358) hemolyzed GLUCOSE RANDOM 184 mg/dL 70-105 H (BEAKER) (test code = 652) CALCIUM (BEAKER) 8.8 mg/dL 8.4-10.2 (test code = 697) EGFR (BEAKER) (test INSUFFIC IENT CLINICAL code = 1092) DATA TO CALCULA TE ESTIMATED GFR. [employer] Melter ID - GALAPCBC W/PLT COUNT & AUTO [id number] 05:21:00 Test Item Value Reference Range Interpretation Comments WHITE BLOOD CELL COUNT (BEAKER) 11.1 K/ L 3.5-10.5 H (test code = 775) RED BLOOD CELL COUNT (BEAKER) 4.93 M/ L 3.93-5.22 (test code = 761) HEMOGLOBIN (BEAKER) (test code = 14.9 GM/DL 11.2-15.7 410) HEMATOCRIT (BEAKER) (test code = 45.5 % 34.1-44.9 H 411) MEAN CORPUSCULAR VOLUME (BEAKER) 92.3 fL 79.4-94.8 (test code = 753) MEAN CORPUSCULAR HEMOGLOBIN 30.2 pg 25.6-32.2 (BEAKER) (test code = 751) MEAN CORPUSCULAR HEMOGLOBIN CONC 32.7 GM/DL 32.2-35.5 (BEAKER) (test code = 752) RED CELL DISTRIBUTION WIDTH 11.8 % 11.7-14.4 (BEAKER) (test code = 412) PLATELET COUNT (BEAKER) (test 304 K/CU MM 150-450 code = 756) MEAN PLATELET VOLUME (BEAKER) 9.1 fL 9.4-12.3 L (test code = 754) NUCLEATED RED BLOOD CELLS 0 /100 WBC 0-0 (BEAKER) (test code = 413) NEUTROPHILS RELATIVE PERCENT 59 % (BEAKER) (test code = 429) LYMPHOCYTES RELATIVE PERCENT 33 % (BEAKER) (test code = 430) MONOCYTES RELATIVE PERCENT 5 % (BEAKER) (test code = 431) EOSINOPHILS RELATIVE PERCENT 2 % (BEAKER) (test code = 432) BASOPHILS RELATIVE PERCENT 1 % (BEAKER) (test code = 437) NEUTROPHILS ABSOLUTE COUNT 6.53 K/ L 1.56-6.13 H (BEAKER) (test code = 670) LYMPHOCYTES ABSOLUTE COUNT 3.64 K/ L 1.18-3.74 (BEAKER) (test code = 414) MONOCYTES ABSOLUTE COUNT (BEAKER) 0.56 K/ L 0.24-0.36 H (test code = 415) EOSINOPHILS ABSOLUTE COUNT 0.21 K/ L 0.04-0.36 (BEAKER) (test code = 416) BASOPHILS ABSOLUTE COUNT (BEAKER) 0.06 K/ L 0.01-0.08 (test code = 417) IMMATURE GRANULOCYTES-RELATIVE 1 % 0-1 PERCENT ([facility]) (test code = 2801) POCT-GLUCOSE [id number] 22:31:00 Test Item Value Reference Range Interpretation Comments POC-GLUCOSE METER 202 mg/dL 70-110 H : Notified RN/MD: ([facility]) (test code = TESTED AT [place] [address] 1538) [facility], [address]: Open H[employer] Melter/Techni kojo ID = [id number] for SA SHALINI NAGEL POCT-GLUCOSE [id number] 19:26:00 Test Item Value Reference Range Interpretation Comments POC-GLUCOSE METER 289 mg/dL 70-110 H : TESTED A T [facility] 67 ([facility]) (test code = [facility], 1538) [address]: Open Hearth Melter/Techni kojo ID = [id number] for TE E, AMALIA POCT-GLUCOSE [id number] 18:27:00 Test Item Value Reference Range Interpretation Comments POC-GLUCOSE METER 384 mg/dL 70-110 H : TESTED A T [place] [address] ([facility]) (test code = [facility], 153) [address]: Open H[employer] Melter/Techni kojo ID = [id number] for TE E, AMALIA POCT-GLUCOSE [id number] 17:45:00 Test Item Value Reference Range Interpretation Comments POC-GLUCOSE METER 418 mg/dL 70-110 HH : Notified RN/MD: ([facility]) (test code = TESTED AT [place] [address] 1538) [facility], [address]: [employer] H[employer] Melter/Techni kojo ID = [id number] for TE E, AMALIA RAD, CHEST, 1 VIEW, NON [id number] 14:44:00Reason for exam:->chest painShould this be performed at the bedside?->YesFINAL REPORT INDICATION: chest pain COMPARISON: None TECHNIQUE: Single frontal view of the chest. FINDINGS: Lungs and pleura: Clear lungs. No effusion.Heart and mediastinum: Normal heart size. Unremarkable mediastinal contours.Osseous structures: No acute abnormality.Other: None. IMPRESSION: No acute intrathoracic abnormality. Signed: JR Marjorie, Cooper MDReport Verified Date/Time: 08/21/2019 14:44:17 Reading Location: [facility] Radiology Reading Room POCT-GLUCOSE [id number] 12:50:00 Test Item Value Reference Range Interpretation Comments POC-GLUCOSE METER 294 mg/dL 70-110 H : [facility] T [facility] 6720 [facility] (test code = [facility], 1538) [address]: Open H[employer] Melter/Techni kojo ID = [id number] for JORDAN PINTO HEMOGLOBIN [id number] 09:45:00 Test Item Value Reference Range Interpretation Comments HEMOGLOBIN A1C (BEAKER) (test code = 14.1 % 4.3-6.1 H 368) POCT-GLUCOSE [id number] 08:50:00 Test Item Value Reference Range Interpretation Comments POC-GLUCOSE METER 209 mg/dL 70-110 H : TESTED A T [facility] 6720 (BEAKER) (test code = [facility], 1538) [address]: [employer] H[employer] Melter/Techni kojo ID = [id number] for FRAN BERRIOS TROPONIN [id number] 05:22:00 Test Item Value Reference Range Interpretation Comments TROPONIN I (BEAKER) (test code = 15.63 ng/mL 0.00-0.03 397) Troponin I (TnI) levels must be interpreted in the context of the presenting symptoms and the clinical findings. Elevated TnI levels indicate myocardial damage, but are not specific for ischemic heart disease. Elevated TnI levels are seen in patients with other cardiac conditions (including myocarditis and congestive heart failure), and slight TnI elevations occur in patients with other conditions, including sepsis, renal failure, acidosis, acute neurological disease, and persistent tachyarrhythmia.[employer] H[employer] Melter ID - BRAD WBASIC METABOLIC [id number] 05:10:00 Test Item Value Reference Range Interpretation Comments SODIUM (BEAKER) (test 137 meq/L 136-145 code = 381) POTASSIUM (BEAKER) 3.4 meq/L 3.5-5.1 L (test code = 379) CHLORIDE (BEAKER) 105 meq/L 98-107 (test code = 382) CO2 (BEAKER) (test 25 meq/L 22-29 code = 355) BLOOD UREA NITROGEN 11 mg/dL 7-21 (BEAKER) (test code = 354) CREATININE (BEAKER) 0.68 mg/dL 0.57-1.25 (test code = 358) GLUCOSE RANDOM 215 mg/dL 70-105 H (BEAKER) (test code = 652) CALCIUM (BEAKER) 8.4 mg/dL 8.4-10.2 (test code = 697) EGFR (BEAKER) (test INSUFFIC IENT CLINICAL code = 1092) DATA TO CALCULA TE ESTIMATED GFR. [employer] Melter ID - BRAD [id number] 04:55:00 Test Item Value Reference Range Interpretation Comments MAGNESIUM (BEAKER) (test code = 1.8 mg/dL 1.6-2.6 627) [employer] Melter ID - BRAD WCBC W/PLT COUNT & AUTO [id number] 04:40:00 Test Item Value Reference Range Interpretation Comments WHITE BLOOD CELL COUNT (BEAKER) 13.4 K/ L 3.5-10.5 H (test code = 775) RED BLOOD CELL COUNT (BEAKER) 4.69 M/ L 3.93-5.22 (test code = 761) HEMOGLOBIN (BEAKER) (test code = 14.7 GM/DL 11.2-15.7 410) HEMATOCRIT (BEAKER) (test code = 42.3 % 34.1-44.9 411) MEAN CORPUSCULAR VOLUME (BEAKER) 90.2 fL 79.4-94.8 (test code = 753) MEAN CORPUSCULAR HEMOGLOBIN 31.3 pg 25.6-32.2 (BEAKER) (test code = 751) MEAN CORPUSCULAR HEMOGLOBIN CONC 34.8 GM/DL 32.2-35.5 (BEAKER) (test code = 752) RED CELL DISTRIBUTION WIDTH 11.9 % 11.7-14.4 (BEAKER) (test code = 412) PLATELET COUNT (BEAKER) (test 266 K/CU MM 150-450 code = 756) MEAN PLATELET VOLUME (BEAKER) 8.9 fL 9.4-12.3 L (test code = 754) NUCLEATED RED BLOOD CELLS 0 /100 WBC 0-0 (BEAKER) (test code = 413) NEUTROPHILS RELATIVE PERCENT 55 % (BEAKER) (test code = 429) LYMPHOCYTES RELATIVE PERCENT 36 % (BEAKER) (test code = 430) MONOCYTES RELATIVE PERCENT 6 % (BEAKER) (test code = 431) EOSINOPHILS RELATIVE PERCENT 1 % (BEAKER) (test code = 432) BASOPHILS RELATIVE PERCENT 1 % (BEAKER) (test code = 437) NEUTROPHILS ABSOLUTE COUNT 7.34 K/ L 1.56-6.13 H (BEAKER) (test code = 670) LYMPHOCYTES ABSOLUTE COUNT 4.87 K/ L 1.18-3.74 H (BEAKER) (test code = 414) MONOCYTES ABSOLUTE COUNT (BEAKER) 0.83 K/ L 0.24-0.36 H (test code = 415) EOSINOPHILS ABSOLUTE COUNT 0.18 K/ L 0.04-0.36 (BEAKER) (test code = 416) BASOPHILS ABSOLUTE COUNT (BEAKER) 0.07 K/ L 0.01-0.08 (test code = 417) IMMATURE GRANULOCYTES-RELATIVE 1 % 0-1 PERCENT (BEAKER) (test code = 2801) TROPONIN [id number] 23:14:00 Test Item Value Reference Range Interpretation Comments TROPONIN I (BEAKER) (test code = 18.18 ng/mL 0.00-0.03 HH 397) Troponin I (TnI) levels must be interpreted in the context of the presenting symptoms and the clinical findings. Elevated TnI levels indicate myocardial damage, but are not specific for ischemic heart disease. Elevated TnI levels are seen in patients with other cardiac conditions (including myocarditis and congestive heart failure), and slight TnI elevations occur in patients with other conditions, including sepsis, renal failure, acidosis, acute neurological disease, and persistent tachyarrhythmia.[employer] Melter ID - KENNFastingB-TYPE NATRIURETIC FACTOR (BNP)2019-08-20 23:05:00 Test Item Value Reference Range Interpretation Comments B-TYPE NATRIURETIC PEPTIDE (BEAKER) 145 pg/mL 0-100 H (test code = 700) [employer] Melter ID - KENNBASIC METABOLIC [id number] 23:04:00 Test Item Value Reference Range Interpretation Comments SODIUM (BEAKER) (test 132 meq/L 136-145 L code = 381) POTASSIUM (BEAKER) 4.2 meq/L 3.5-5.1 Specimen slightly (test code = 379) hemolyzed CHLORIDE (BEAKER) 100 meq/L 98-107 (test code = 382) CO2 (BEAKER) (test 22 meq/L 22-29 code = 355) BLOOD UREA NITROGEN 14 mg/dL 7-21 (BEAKER) (test code = 354) CREATININE (BEAKER) 0.76 mg/dL 0.57-1.25 Specimen slightly (test code = 358) hemolyzed GLUCOSE RANDOM 257 mg/dL 70-105 H (BEAKER) (test code = 652) CALCIUM (BEAKER) 8.8 mg/dL 8.4-10.2 (test code = 697) EGFR (BEAKER) (test INSUFFIC IENT CLINICAL code = 1092) DATA TO CALCULA TE ESTIMATED GFR. [employer] Melter ID - KENNFastingLIPID [id number] 23:01:00 Test Item Value Reference Range Interpretation Comments TRIGLYCERIDES (BEAKER) 199 mg/dL Speci men slightly (test code = 540) hemolyzed CHOLESTEROL (BEAKER) 245 mg/dL Specime n slightly (test code = 631) hemolyzed HDL CHOLESTEROL (BEAKER) 47 mg/dL (test code = 976) LDL CHOLESTEROL 158 mg/dL CALCULATED (BEAKER) (test code = 633) Triglyceride Reference Range: Low Risk <150 Borderline 150-199 High Risk 200-499 Very High Risk >=500Cholesterol Reference Range: Low Risk <200 Borderline 200-239 High Risk >240HDL Cholesterol Reference Range: Low Risk >=60 High Risk <40LDL Cholesterol Reference Range: Optimal <100 Near Optimal 100-129 Borderline 130-159 High 160-189 Very High >=190 Open Hearth Melter ID - KENNFastingCBC (HEMOGRAM ONLY)2019-08-20 22:35:00 Test Item Value Reference Range Interpretation Comments WHITE BLOOD CELL COUNT (BEAKER) 14.1 K/ L 3.5-10.5 H (test code = 775) RED BLOOD CELL COUNT (BEAKER) 4.76 M/ L 3.93-5.22 (test code = 761) HEMOGLOBIN (BEAKER) (test code = 14.9 GM/DL 11.2-15.7 410) HEMATOCRIT (BEAKER) (test code = 42.9 % 34.1-44.9 411) MEAN CORPUSCULAR VOLUME (BEAKER) 90.1 fL 79.4-94.8 (test code = 753) MEAN CORPUSCULAR HEMOGLOBIN 31.3 pg 25.6-32.2 (BEAKER) (test code = 751) MEAN CORPUSCULAR HEMOGLOBIN CONC 34.7 GM/DL 32.2-35.5 (BEAKER) (test code = 752) RED CELL DISTRIBUTION WIDTH 11.8 % 11.7-14.4 (BEAKER) (test code = 412) PLATELET COUNT (BEAKER) (test 294 K/CU MM 150-450 code = 756) MEAN PLATELET VOLUME (BEAKER) 9.0 fL 9.4-12.3 L (test code = 754) NUCLEATED RED BLOOD CELLS 0 /100 WBC 0-0 (BEAKER) (test code = 413) POCT-GLUCOSE [id number] 22:02:00 Test Item Value Reference Range Interpretation Comments POC-GLUCOSE METER 245 mg/dL 70-110 H : TESTED A T [place] [address] (BEAKER) (test code [facility], = 1538) [address]: [employer] H[employer] Melter/Techni kojo ID = [id number] for MEGHNA VENTURA [id number] 20:12:00 Test Item Value Reference Range Interpretation Comments ACTIVATED CLOTTING TIME 307 sec Refe rence Range: (BEAKER) (test code = 74-137 seconds, 441) Baseline/TESTED AT [address] [address] [id number] 19:35:00 Test Item Value Reference Range Interpretation Comments ACTIVATED CLOTTING TIME 263 sec Refe rence Range: (BEAKER) (test code = 74-137 seconds, 441) Baseline/TESTED AT [address] [address] [id number] 19:20:00 Test Item Value Reference Range Interpretation Comments ACTIVATED CLOTTING TIME 279 sec Refe rence Range: (BEAKER) (test code = 74-137 seconds, 441) Baseline/TESTED AT [address] [address] [id number] 18:57:00 Test Item Value Reference Range Interpretation Comments ACTIVATED CLOTTING TIME 202 sec Refe rence Range: (BEAKER) (test code = 74-137 seconds, 441) Baseline/TESTED AT [address] [address] [id number] 18:48:00 Test Item Value Reference Range Interpretation Comments ACTIVATED CLOTTING TIME 120 sec Refe rence Range: (BEAKER) (test code = 74-137 seconds, 441) Baseline/TESTED AT [facility] [address] [facility] [address] POC Glucose, [id number] 10:38:00 Test Item Value Reference Range Interpretation Comments POC Glucose (test 182 mg/dL 70-115 H Notify RN or MDIf you code = POCGLUC) consider you r patient critically ill, the Mónica Accu-Chek InformII metershould not be used for Glucose determinations. Draw a venous Glucose and send to the Main Lab for Analysis. Glycosylated [id number] 06:54:00 Test Item Value Reference Range Interpretation Comments HBA1c (test code = HBA1C) 8.1 % 4.8-5.9 H POC Glucose, [id number] 05:00:00 Test Item Value Reference Range Interpretation Comments POC Glucose (test 236 mg/dL 70-115 H Notify RN or MDIf you code = POCGLUC) consider you r patient critically ill, the Mónica Accu-Chek InformII metershould not be used for Glucose determinations. Draw a venous Glucose and send to the Main Lab for Analysis. POC Glucose, [id number] 20:22:00 Test Item Value Reference Range Interpretation Comments POC Glucose (test 225 mg/dL 70-115 H Notify RN or MDIf you code = POCGLUC) consider you r patient critically ill, the Mónica Accu-Chek InformII metershould not be used for Glucose determinations. Draw a venous Glucose and send to the Main Lab for Analysis. POC Glucose, [id number] 14:54:00 Test Item Value Reference Range Interpretation Comments POC Glucose (test 239 mg/dL 70-115 H Notify RN or MDIf you code = POCGLUC) consider you r patient critically ill, the Mónica Accu-Chek InformII metershould not be used for Glucose determinations. Draw a venous Glucose and send to the Main Lab for Analysis. POC Glucose, [id number] 10:20:00 Test Item Value Reference Range Interpretation Comments POC Glucose (test 269 mg/dL 70-115 H Notify RN or MDIf you code = POCGLUC) consider you r patient critically ill, the Mónica Accu-Chek InformII metershould not be used for Glucose determinations. Draw a venous Glucose and send to the Main Lab for Analysis. POC Glucose, [id number] 05:22:00 Test Item Value Reference Range Interpretation Comments POC Glucose (test 179 mg/dL 70-115 H Notify RN or MDIf you code = POCGLUC) consider you r patient critically ill, the Mónica Accu-Chek InformII metershould not be used for Glucose determinations. Draw a venous Glucose and send to the Main Lab for Analysis. POC Glucose, [id number] 20:36:00 Test Item Value Reference Range Interpretation Comments POC Glucose (test 342 mg/dL 70-115 H Notify RN or MDIf you code = POCGLUC) consider you r patient critically ill, the Mónica Accu-Chek InformII metershould not be used for Glucose determinations. Draw a venous Glucose and send to the Main Lab for Analysis. POC Glucose, [id number] 16:52:00 Test Item Value Reference Range Interpretation Comments POC Glucose (test 217 mg/dL 70-115 H Notify RN or MDIf you code = POCGLUC) consider you r patient critically ill, the Mónica Accu-Chek InformII metershould not be used for Glucose determinations. Draw a venous Glucose and send to the Main Lab for Analysis. RPR, [id number] 12:32:00 Test Item Value Reference Range Interpretation Comments RPR (test code = RPR) Non-Reactive Non-Reactive N POC Glucose, [id number] 11:16:00 Test Item Value Reference Range Interpretation Comments POC Glucose (test 250 mg/dL 70-115 H If you con nuclear waste process operator your code = POCGLUC) patient crit ically ill, the Mónica Accu- Chek InformII meters hould not be used for Glu cose determinations. Draw a venous Glucose and send to the Main Lab for Analysis. Lipid [id number] 08:51:00 Test Item Value Reference Range Interpretation Comments Cholesterol (test 225 mg/dL 0-200 H code = CHOL) Triglycerides (test 169 mg/dL 9-200 N code = TRIG) HDL (test code = 38 mg/dL 50-60 L HDL) Chol/HDL (test code 5.9 Ratio 0.0-4.4 H = CHOLPHDL) LDL, Calculated 153 0-130 H (NOTE)RISK O F HEART (test code = LDLC) DISEASEPu blished by [place] Heart AssociationAnal yte Optim al Boderline Increased RiskC HOL <200 200-239 >240TRI G <150 150-199 >200HDL Male: >60 <40HDL Female: >60 <50 LDL < 100 130-15 9 >160 LDL NEAR OPTIMAL IS 100- 129 VLDL (test code = 34 mg/dL 5-40 N VLDL) LDL/HDL (test code = 4 LDLPHDL) BHCG, Serum, [id number] 08:46:00 Test Item Value Reference Range Interpretation Comments B hCG, Quant (test <1 mIU/mL Weeks of Gestation code = BHCGQT) Ranges (mIU/m L)3 weeks 5. 40 - 72.04 weeks 10.2 - 7085 w eeks 217 - 21889 weeks 152 - 789745 weeks 4059 - 153 7678 weeks 69316 - 7546103 weeks 591 09 - 16745323 weeks 49488 - 1704 0912 weeks 83778 - [id number] week s 77293 - 93 00677 weeks 78758 - 3344540 weeks 8904 - 5533 217 weeks 82 40 - 8076550 weeks 9649 - 18762 Thyroid Stimulating Hormone (TSH)2017-10-15 08:46:00 Test Item Value Reference Range Interpretation Comments TSH (test code = TSH) 1.57 mIU/mL 0.270-4.200 N RPR, [id number] 06:18:00 Test Item Value Reference Range Interpretation Comments RPR (test code = RPR) Non-Reactive Non-Reactive N POC Glucose, [id number] 06:09:00 Test Item Value Reference Range Interpretation Comments POC Glucose (test 162 mg/dL 70-115 H Notify RN or MDIf you code = POCGLUC) consider you r patient critically ill, the [facility] Accu-Chek InformII metershould not be used for Glucose determinations. Draw a venous Glucose and send to the Main Lab for Analysis. POC Glucose, [id number] 19:20:00 Test Item Value Reference Range Interpretation Comments POC Glucose (test 201 mg/dL 70-115 H If you con nuclear waste process operator your code = POCGLUC) patient crit ically ill, the M[place] Accu- Chek InformII meters hould not be used for Glu cose determinations. Draw a venous Glucose and send to the Main Lab for Analysis. Thyroid Stimulating Hormone (TSH)2017-10-14 18:05:00 Test Item Value Reference Range Interpretation Comments TSH (test code = TSH) 1.03 mIU/mL 0.270-4.200 N POC Glucose, [id number] 17:34:00 Test Item Value Reference Range Interpretation Comments POC Glucose (test 141 mg/dL 70-115 H If you con nuclear waste process operator your code = POCGLUC) patient crit marcelo ill, the Mónica Accu- Chek InformII meters hould not be used for Glu cose determinations. Draw a venous Glucose and send to the Main Lab for Analysis. BHCG, Serum, [id number] 14:56:00 Test Item Value Reference Range Interpretation Comments Preg Qual [Se] (test code = BSHCG) Negative Negative N Lipid [id number] 14:55:00 Test Item Value Reference Range Interpretation Comments Cholesterol (test 242 mg/dL 0-200 H code = CHOL) Triglycerides (test 134 mg/dL 9-200 N code = TRIG) HDL (test code = 44 mg/dL 50-60 L HDL) Chol/HDL (test code 5.5 Ratio 0.0-4.4 H = CHOLPHDL) LDL, Calculated 171 mg/dL 0-130 H (NOTE)RISK O F HEART (test code = LDLC) DISEASEPu blished by [place] Heart AssociationAnal yte Optim al Boderline Increased RiskC HOL <200 200-239 >240TRI G <150 150-199 >200HDL Male: >60 <40HDL Female: >60 <50 LDL < 100 130-15 9 >160 LDL NEAR OPTIMAL IS 100- 129 VLDL (test code = 27 mg/dL 5-40 N VLDL) LDL/HDL (test code = 4 LDLPHDL) Urinalysis [id number] 13:20:00 Test Item Value Reference Range Interpretation Comments Color (test code = COLOR) Yellow Yellow,Straw,Pl N yellow Clarity (test code = Clear Clear N CLAR) Specific [place] (test 1.024 1.001-1.035 N code = SPGR) pH (test code = PH) 5.0 5.0-9.0 N Ketone (test code = KET) 50 mg/dL Negative A Glucose (test code = 1000 mg/dL Negative A GLUCUR) Protein (test code = Negative mg/dL Negative N PROT) Bilirubin (test code = Negative mg/dL Negative N BILI) Occult Blood (test code = Negative Negative N UDOB) Urobilinogen (test code = 1.0 mg/dL 0.2-1.0 N UROB) Nitrite (test code = NIT) Positive Negative A Leuk Esterase (test code Negative Negative N = LEUK) Micros Exam (test code = Indicated MEXAM) Epithelial Cells (test 10-14 /LPF 0-30 A code = EPI) WBC, Urine (test code = 0-2 /HPF 0-5 A UWBC) RBC, Urine (test code = None Seen /HPF 0-5 A URBC) Bacteria (test code = Moderate /HPF BACT) [id number] 13:16:00 Test Item Value Reference Range Interpretation Comments Amphetamine (test Negative Negative N For diagno stic code = AMPH) purposes only, positive result s should always b e assessedin conjunctionwith the patient's medic al history,clinica l examination and otherfindings.T o fulfill legal requirements, a more specific altern ate chemical method must be used inorder to obtain a Confirmed rosamaria lytical result. GC/MS i s the preferred confi rmatory method. Barbiturates (test Negative Negative N code = ) Benzodiazepine (test Negative Negative N code = MIGUEL) Cocaine (test code = Negative Negative N COCA) Methadone (test code Negative Negative N = MTHD) Opiates (test code = Negative Negative N OPIA) PCP (test code = PCP) Negative Negative N Propoxyphene (test Negative Negative N code = PROPOX) THC (test code = THC) Negative Negative N Alcohol, Urine (test <0.01 g/dL 0.00-0.01 N code = ETOHU) Comprehensive Metabolic [id number] 13:16:00 Test Item Value Reference Range Interpretation Comments Sodium (test code = 139 mmol/L 135-145 N NA) Potassium (test 4.2 mmol/L 3.5-5.1 N code = K) Chloride (test code 99 mmol/L 98-105 N = CL) Carbon Dioxide 28 mmol/L 22-29 N (test code = CO2) Glucose (test code 239 mg/dL 70-115 H = GLU) Blood Urea Nitrogen 10 mg/dL 6-20 N (test code = BUN) Creatinine (test 1.0 mg/dL 0.5-0.9 H code = CREAT) Calcium (test code 9.0 mg/dL 8.3-10.5 N = CA) Prot Total (test 6.8 g/dL 6.4-8.3 N code = TP) Albumin (test code 4.3 g/dL 3.5-5.2 N = ALB) A/G Ratio (test 1.7 Ratio code = AGRATIO) Globulin (test code 2.5 2.9-3.1 L = GLOB) Bili Total (test 0.3 mg/dL 0.1-0.9 N code = TBIL) Alk Phos (test code 87 U/L 35-104 N = APHOS) AST (test code = 11 U/L 1-32 N AST) ALT (test code = 13 U/L 1-33 N ALT) BUN/Creatinine 10.0 Ratio (test code = BCRATIO) Anion Gap (test 12 mmol/L 7-16 N code = AGAP) Estimated GFR (test >60 eGFR (es timated code = GFR) mL/min/1.73m2 Glomerular Manpreet tration Rate) is an est imated value,calculate d from the patient's s [place] creatinine usin g the MDRD equation.I t is NOT the patient 's actual GFR. The eGFR provides a more clinicallyusefu l measure of kidn ey disease than se rum creatinine alone.This calculation raúl es sex and race into account, if the informationis provided. If th e race is not provided , and the patient isAfrican-Ameri can, multiply by 1.2 12. If sex is not prov ided, and thepatient is female, multipl y by 0.742. Results for patients <18 ye ars ofage have not been validated by th e MDRD study and francesco manzano be interpretedwith caution.eGFR Re sult Interpretation: eGFR > or = 60 is in t he Normal RangeeGF R < 60 may mean kidney diseaseeGFR < 1 5 may mean kidney failureRange s recommended by the National Kidney Foundation,http ://nkd ep.nih.gov CBC with [id number] 13:08:00 Test Item Value Reference Range Interpretation Comments WBC (test code = WBC) 10.3 K/cumm 4.4-10.5 N RBC (test code = RBC) 5.04 M/cumm 3.75-5.20 N Hemoglobin (test code = HGB) 15.0 gm/dL 12.2-14.8 H Hematocrit (test code = HCT) 45.7 % 36.5-44.4 H MCV (test code = MCV) 90.8 fL 80-100 N MCH (test code = MCH) 29.8 pg 27.0-32.5 N MCHC (test code = MCHC) 32.8 g/dL 32.0-37.5 N RDW (test code = RDW) 12.2 % 11.5-14.5 N Platelet Count (test code = 376 K/cumm 140-440 N PLTCT) MPV (test code = MPV) 6.4 fL Diff Method (test code = DIFFM) Auto Neutrophil (test code = NEUT) 71.6 % 36-70 H Lymphocyte (test code = LYMPH) 23.8 % 12-44 N Monocyte (test code = MONO) 3.2 % 0-11 N Eosinophil (test code = EOS) 0.6 % 0-7 N Basophil (test code = BASO) 0.8 % 0-2 N Neutro Abs (test code = ANEUT) 7.4 K/cumm 1.6-7.4 N Lymph Abs (test code = ALYMPH) 2.5 K/cumm 0.5-4.6 N [place] Abs (test code = AMONO) 0.3 K/cumm 0.0-1.2 N Eos Abs (test code = AEOS) 0.06 K/cumm 0.00-0.74 N Baso Abs (test code = ABASO) 0.1 K/cumm 0.00-0.21 N
[2021-09-16 13:48] LABS: Absolute Lymphocytes (CBC) 1.9 K/uL (0.7-4.9); Hematocrit 47.3 % (36.0-45.0); Lymphocytes % 23.5 % (15.3-44.8); MPV 7.6 fL (7.6-11.3); RBC Red Blood Cell Count 5.35 M/uL (3.86-4.86)
[2021-09-16 13:50] LABS: Protime INR 0.93
[2021-09-16] MEDS ORDERED: LORazepam 2 MG/ML VIAL ONE (14:02)
[2021-09-16 14:06] LABS: Albumin 4.1 g/dL (3.4-5.0); Bilirubin Direct 0.2 mg/dL (0-0.2); Bilirubin Total 0.6 mg/dL (0.2-1.0); Potassium 3.9 mmol/L (3.5-5.1); Protein, Total 8.2 g/dL (6.4-8.2); Troponin High Sensitivity 17.8 pg/mL (<58.9)
[2021-09-16] MEDS ORDERED: NA CHLORIDE 0.9% 1,000 ML ONE (14:07)
--- NOTE | 2021-09-16 15:05 | RAD REPORT ---
EXAM DESCRIPTION: Geraldine Single View09/16/2021 2:21 pm CLINICAL HISTORY: Chest pain COMPARISON: none FINDINGS: The lungs appear clear of acute infiltrate. The heart is normal size IMPRESSION: No acute abnormalities displayed
--- NOTE | 2021-09-16 16:41 | EDPHYS ---
Physician Documentation [facility] Name: Chelsi Brice Age: 46 yrs Sex: Female : 1975 Arrival Date: 09/16/2021 Time: 12:56 Bed 8 Private MD: ED Physician Aron Carranza HPI: 09/16 13:46 This 46 yrs old Female presents to ER via Ambulatory with complaints of Chest Pain. kb 13:46 The patient or guardian reports chest pain that is located primarily in the substernal kb area. Onset: 3 day(s) ago. The pain does not radiate. Associated signs and symptoms: The patient has no apparent associated signs or symptoms. The chest pain is described as a pressure. Duration: The patient or guardian reports a single episode, that is still ongoing. Modifying factors: The symptoms are alleviated by nothing. the symptoms are aggravated by nothing. Severity of pain: At its worst the pain was moderate in the emergency department the pain is unchanged. The patient has experienced a previous episode. The patient has not recently seen a physician. Pt reports substernal chest pain that started three days ago. Pain was intermittent, but now constant. 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 States she has a history of anxiety so she was waiting to see if it went away before she came in, but anxiety doesn't make her chest hurt this long. CARPET CUTTER: 13:19 LMP N/A - Post-menopause ap3 Historical: - Allergies: 13:17 No Known Allergies; ap3 - PMHx: 13:17 Diabetes - IDDM; Heart Murmur; Hyperlipidemia; Myocardial infarction; Panic Attacks; ap3 - Immunization history:: Client reports receiving the 2nd dose of the Covid vaccine. - Social history:: Smoking status: Patient denies any tobacco usage or history of. ROS: 13:46 Constitutional: Negative for fever, chills, and weight loss. kb 13:46 Cardiovascular: Positive for chest pain, Negative for edema, orthopnea, palpitations, paroxysmal nocturnal dyspnea. 13:46 All other systems are negative. Exam: 13:46 Constitutional: This is a well developed, well nourished patient who is awake, alert, kb and in no acute distress. Head/Face: Normocephalic, atraumatic. ENT: Moist Mucous membranes Cardiovascular: Regular rate and rhythm with a normal S1 and S2. No gallops, murmurs, or rubs. No pulse deficits. Respiratory: Respirations even and unlabored. No increased work of breathing. Talking in full sentences Skin: Warm, dry with normal turgor. Normal color. MS/ Extremity: Pulses equal, no cyanosis. Neurovascular intact. Full, normal range of motion. Neuro: Awake and alert, GCS 15, oriented to person, place, time, and situation. Moves all extremities. Normal gait. Psych: Awake, alert, with orientation to person, place and time. Behavior, mood, and affect are within normal limits. Vital Signs: 13:15 BP 139 / 91; Pulse 86; Resp 17; Temp 98.1; Pulse Ox 96% ; Weight 99.79 kg; Height 5 ft. ap3 4 in. (162.56 cm); Pain 4/10; 13:55 BP 107 / 68; Pulse 78; Resp 16; Pulse Ox 94% ; ic1 15:08 BP 127 / 80; Pulse 73; Resp 16; Pulse Ox 98% on R/A; ic1 16:08 BP 110 / 76; Pulse 70; Resp 16; Pulse Ox 98% on R/A; xie 13:15 Body Mass Index 37.76 (99.79 kg, 162.56 cm) ap3 MDM: 13:19 Patient medically screened. kb 13:46 Data reviewed: vital signs, nurses notes. Data interpreted: Pulse oximetry: on room air kb is 96 %. Interpretation: normal. 16:39 Counseling: I had a detailed discussion with the patient and/or guardian regarding: the kb historical points, exam findings, and any diagnostic results supporting the discharge/admit diagnosis, lab results, radiology results, the need for outpatient follow up, a unitizer, a family practitioner, to return to the emergency department if symptoms worsen or persist or if there are any questions or concerns that arise at home. ED course: Pt feeling better after ativan. Troponin trending down. Pt had normal heart cath Aug 2020. Will discharge home to follow up with unitizer. . 09/16 13:20 Order name: Basic Metabolic Panel kb 09/16 13:20 Order name: CBC with Diff kb 09/16 13:20 Order name: LFT's; Complete Time: 14:09 kb 09/16 13:20 Order name: Magnesium; Complete Time: 14:09 kb 09/16 13:20 Order name: NT PRO-BNP; Complete Time: 14:09 kb 09/16 13:20 Order name: PT-INR; Complete Time: 13:58 kb 09/16 13:20 Order name: Troponin HS; Complete Time: 14:09 kb 09/16 13:20 Order name: XRAY Chest (1 view); Complete Time: 15:08 kb 09/16 13:20 Order name: Basic Metabolic Panel; Complete Time: 14:09 EDMS 09/16 13:20 Order name: CBC with Automated Diff; Complete Time: 13:50 EDMS 09/16 13:22 Order name: COVID-19 SARS RT PCR (Document "Date of Onset" if Symptomatic); Complete kb Time: 14:21 09/16 16:04 Order name: Troponin HS; Complete Time: 16:35 ic1 09/16 13:20 Order name: EKG; Complete Time: 13:20 kb 09/16 13:20 Order name: Cardiac monitoring; Complete Time: 13:55 kb 09/16 13:20 Order name: EKG - Nurse/Tech; Complete Time: 13:55 kb 09/16 13:20 Order name: IV Saline Lock; Complete Time: 13:55 kb 09/16 13:20 Order name: Labs collected and sent; Complete Time: 13:55 kb 09/16 13:20 Order name: O2 Per Protocol; Complete Time: 13:55 kb 09/16 13:20 Order name: O2 Sat Monitoring; Complete Time: 13:55 kb 09/16 16:05 Order name: EKG - Nurse/Tech; Complete Time: 16:05 ic1 Administered Medications: 14:03 Drug: Ativan (LORazepam) 0.5 mg Route: IVP; Site: right antecubital; ic1 14:07 Drug: NS 0.9% 1000 ml Route: IV; Rate: 1000 ml; Site: right antecubital; ic1 16:42 Follow up: IV Status: Completed infusion; IV Intake: 1000ml ic1 Disposition: 17:09 Co-signature as Attending Physician, Aron VILLATORO I agree with the assessment and rn plan of care. Attestation: The patient's history, exam findings, diagnostics, and a summary of any interventions or procedures was reviewed in detail with Belén COLON. Disposition Summary: 09/16/21 16:40 Discharge Ordered Location: Home kb Condition: Stable kb Diagnosis - Chest pain, unspecified kb Followup: kb - With: Emergency Department - When: As needed - Reason: Worsening of condition Followup: kb - With: Private Physician - When: 2 - 3 days - Reason: Recheck today's complaints, Continuance of care, Re-evaluation by your physician Discharge Instructions: - Discharge Summary Sheet kb - Nonspecific Chest Pain, Adult, Nluv-he-Oeip kb Forms: - Medication Reconciliation Form kb - Thank You Letter kb - Antibiotic Education kb - Prescription Opioid Use kb Signatures: Dispatcher [employer] EDBelén Springer FNP-C FNP-Ckb Aron Carranza MD MD rn Prokisch, Amanda, RN RN ap3 Kathe Aguilar RN RN ic1 Corrections: (The following items were deleted from the chart) 13:48 13:46 Pt reports substernal chest pain that started three days ago. Pain was kb intermittent, but now constant. 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 . kb
--- NOTE | 2021-09-16 16:41 | ER ---
Nurse's Notes [facility] Name: Chelsi Brice Age: 46 yrs Sex: Female : 1975 Arrival Date: 09/16/2021 Time: 12:56 Bed 8 Private MD: Diagnosis: Chest pain, unspecified Presentation: 09/16 13:15 Chief complaint: Patient states: she has been having chest pain and pressure for approx ap3 3 days. Patient reports having a hx of MN (year 1999), and that the pain she is experiencing is similar to the [place]. Coronavirus screen: At this time, the client does not indicate any symptoms associated with coronavirus-19. Ebola Screen: No symptoms or risks identified at this time. Initial Sepsis Screen: Does the patient meet any 2 criteria? No. Patient's initial sepsis screen is negative. Does the patient have a suspected source of infection? No. Patient's initial sepsis screen is negative. Risk Assessment: Do you want to hurt yourself or someone else? Patient reports no desire to harm self or others. Onset of symptoms was September 13, 2021. 13:15 Method Of Arrival: Ambulatory ap3 13:15 Acuity: EDIS 3 ap3 Triage Assessment: 13:17 General: Appears uncomfortable, Behavior is cooperative, anxious. Pain: Complains of ap3 pain in anterior aspect of left upper chest Pain radiates to left clavicle, mid-sternal area and left breast Pain currently is 4 out of 10 on a pain scale. at worst was 8 out of 10 on a pain scale. Neuro: Level of Consciousness is awake, alert, obeys commands, Oriented to person, place, time, situation, Appropriate for age Speech is normal. Cardiovascular: Reports chest pain, Chest pain is described as Pain is 4 out of 10 on a pain scale. began 3 days ago. Respiratory: Airway is patent. 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 - Social history:: Smoking status: Patient denies any tobacco usage or history of. Screenin:18 Abuse screen: Denies threats or abuse. Nutritional screening: No deficits noted. ap3 Tuberculosis screening: No symptoms or risk factors identified. Fall Risk No fall in past 12 months (0 pts). Assessment: 13:19 Pain: Pain began 2-3 days ago. ap3 15:08 Reassessment: Patient appears in no apparent distress at this time. No changes from ic1 previously documented assessment. Patient and/or family updated on plan of care and expected duration. Pain level reassessed. Patient is alert, oriented x 3, equal unlabored respirations, skin warm/dry/pink. Patient denies pain at this time. Vital Signs: 13:15 BP 139 / 91; Pulse 86; Resp 17; Temp 98.1; Pulse Ox 96% ; Weight 99.79 kg; Height 5 ft. ap3 4 in. (162.56 cm); Pain 4/10; 13:55 BP 107 / 68; Pulse 78; Resp 16; Pulse Ox 94% ; ic1 15:08 BP 127 / 80; Pulse 73; Resp 16; Pulse Ox 98% on R/A; ic1 16:08 BP 110 / 76; Pulse 70; Resp 16; Pulse Ox 98% on R/A; xie 13:15 Body Mass Index 37.76 (99.79 kg, 162.56 cm) ap3 ED Course: 12:56 Patient arrived in ED. mr 13:17 Triage completed. ap3 13:18 Arm band placed on left wrist. EKG completed in triage. Results shown to MD. ap3 13:19 Belén Cooney [facility]-C [facility]. kb 13:19 Aron Carranza MD is Attending Physician. kb 13:19 Patient maintains SpO2 saturation greater than 95% on room air. ap3 13:25 Kathe Aguilar, CLAYTON is Primary Nurse. ic1 13:55 Basic Metabolic Panel Sent. ic1 14:21 XRAY Chest (1 view) In Process Unspecified. EDMS 14:27 Basic Metabolic Panel Sent. ww 14:27 CBC with Diff Sent. ww 16:41 IV discontinued, intact, bleeding controlled, No redness/swelling at site. Pressure ic1 dressing applied. 16:42 monitoring and evaluation advisor on. Pulse ox on. NIBP on. ic1 16:42 Patient has correct armband on for positive identification. ic1 Administered Medications: 14:03 Drug: Ativan (LORazepam) 0.5 mg Route: IVP; Site: right antecubital; ic1 14:07 Drug: NS 0.9% 1000 ml Route: IV; Rate: 1000 ml; Site: right antecubital; ic1 16:42 Follow up: IV Status: Completed infusion; IV Intake: 1000ml ic1 Intake: 16:42 IV: 1000ml; Total: 1000ml. ic1 Outcome: 16:40 Discharge ordered by MD. christine 16:41 Discharged to home with significant other. ic1 16:41 Condition: stable 16:41 Discharge instructions given to patient, Instructed on discharge instructions, follow up and referral plans. Demonstrated understanding of instructions, follow-up care. 16:54 Patient left the ED. ic1 Signatures: Dispatcher [employer] EDBelén Springer, DARLENE MOOREP-Sandra Dunn mr NealDelilah, RN RN Alicia Morrison RN RN ww Au-Stager, Heather, RN RN ha Creggett, Iesha, RN RN ic1
[2021-09-16 18:27] VITALS: O2SAT 98
[2021-09-16 18:29] VITALS: BP 110/76
[2021-09-16 18:34] VITALS: TEMP 98.1
--- NOTE | 2021-09-17 12:53 | EKG ---
Test Date: 2021-09-16 Test Time: 16:38:50 Sheeter Helper: ALP MEASUREMENT RESULTS: Intervals: Rate: 63 [place]: 162 QRSD: 78 QT: 440 QTc: 450 [place]: P: 11 [place]: 162 QRS: -4 T: 19 INTERPRETIVE STATEMENTS: Normal sinus rhythm Low voltage QRS Cannot rule out Anterior infarct, age undetermined Abnormal ECG Compared to ECG 09/16/2021 15:58:42 No significant changes Electronically Signed On 09-17-21 12:52:03 EDGE STAINER by Christopher Ferguson
--- NOTE | 2021-09-17 12:53 | EKG ---
Test Date: 2021-09-16 Test Time: 15:58:42 [place] Assembly Repair: IC MEASUREMENT RESULTS: Intervals: Rate: 68 PA: 162 QRSD: 76 QT: 430 QTc: 457 [place]: P: 18 PA: 162 QRS: 8 T: 21 INTERPRETIVE STATEMENTS: Normal sinus rhythm Low voltage QRS Cannot rule out Anterior infarct, age undetermined Abnormal ECG Compared to ECG 09/16/2021 13:15:54 Myocardial infarct finding now present Electronically Signed On 09-17-21 12:52:04 WINK CUTTER OPERATOR by Christopher Ferguson
--- NOTE | 2021-09-17 12:55 | EKG ---
Test Date: 2021-09-16 Test Time: 13:15:54 Jeeper Operator: ALP MEASUREMENT RESULTS: Intervals: Rate: 92 [place]: 154 QRSD: 70 QT: 368 QTc: 455 [place]: P: 77 [place]: 154 QRS: 48 T: 46 INTERPRETIVE STATEMENTS: Normal sinus rhythm Low voltage QRS Borderline ECG Compared to ECG 09/21/2019 15:17:52 No significant changes Electronically Signed On 09-17-21 12:52:09 TRANSPORTATION MAINTENANCE SPECIALIST by Christopher Ferguson
== END 2021-09-16 16:54 | disposition home or self-care (01) ==
LOC: ER 12:54
DX: R07.9 Chest pain, unspecified (principal); Z95.818 Presence of other cardiac implants and grafts; E11.9 Type 2 diabetes mellitus without complications; Z20.822 Contact with and (suspected) exposure to COVID-19
CPT/HCPCS: 96361; 93005 ×3; 85025; 80048; 36415; 83735; 85610; 80076; 84484 ×2; 83880; 71045; 96374; 99285; U0003; J7030

== ENCOUNTER 2022-01-29 19:18 | Emergency (ER) | payer OTHER ==
--- OUTSIDE RECORDS SUMMARY | 2022-01-29 19:23 | XMS REPORT | Continuity of Care Document ---
:1975 Author Organization [facility] t Address [address] [place] [address] Care Team Providers Name Role Phone UNKNOWN Primary Care Physician Unavailable Demetria Ortiz Attending Clinician Unavailable Demetria Muñoz Attending Clinician Unavailable Demetria Muñoz Attending Clinician Unavailable Lucina SAXENA Attending Clinician Unavailable YADIEL BILLINGSLEY M.D. Attending Clinician Unavailable Demetria Muñoz Admitting Clinician Unavailable Lucina SAXENA Admitting Clinician Unavailable YADIEL BILLINGSLEY M.D. Admitting Clinician Unavailable Payers Payer Name Policy Type Policy Number Effective Date Expiration Date S ource Problems This patient has no known problems. Allergies, Adverse Reactions, Alerts Allergy Allergy Status Severity Reaction(s) Onset Inactive Treating Comm ents Source Name Type Date Date Clinician No Known DA Active U [facility] Drug 4-16 Allergie 00:00: s 00 No Known Drug Active [facility] NO KNOWN Allergy Active [facility] Medications This patient has no known [...] 2020-11-20 15:15:30 12 /min Weight 2020-11-20 15:15:30 875047.092\\S\\4000 Weight Measurement Method 2020-11-20 15:15:30 Estimated by Patient 02 Sat by Pulse Oximetry 2020-10-30 10:08:11 99 /min Body Mass Index 2020-10-30 10:08:11 47.2 Height 2020-10-30 10:08:11 154.94\\S\\61 Pulse Rate 2020-10-30 10:08:11 73 /min Pulse Strength 2020-10-30 10:08:11 Normal /min Pulse Assessment Method 2020-10-30 10:08:11 Palpation /min Respiratory Rate 2020-10-30 10:08:11 12 /min Weight 2020-10-30 10:08:11 502901.092\\S\\4000 Weight Measurement Method 2020-10-30 10:08:11 Estimated by Patient 02 Sat by Pulse Oximetry 2020-10-26 00:12:00 99 /min Body Mass Index 2020-10-26 00:12:00 47.2 Height 2020-10-26 00:12:00 154.94\\S\\61 Pulse Rate 2020-10-26 00:12:00 73 /min Pulse Strength 2020-10-26 00:12:00 Normal /min Pulse Assessment Method 2020-10-26 00:12:00 Palpation /min Respiratory Rate 2020-10-26 00:12:00 12 /min Weight 2020-10-26 00:12:00 757282.092\\S\\4000 Weight Measurement Method 2020-10-26 00:12:00 Estimated by Patient Body Mass Index 2020-10-25 10:07:51 47.2 Height 2020-10-25 10:07:51 154.94\\S\\61 Weight 2020-10-25 10:07:51 394204.092\\S\\4000 Weight Measurement Method 2020-10-25 10:07:51 Estimated by Patient WEIGHT 2020-10-25 10:06:00 113.622122 kg HEIGHT 2020-10-25 10:06:00 154.94 cm Procedures This patient has no known procedures. Encounters Start End Encounter Admission Attending Care Care Encounter Source Date/Time Date/Time Type Type Clinicians Facility Department ID 2020-10-25 2020-10-25 Outpatient Diana [facility] [id number] [facility] 10:30:00 10:30:00 Rich 25 2020-04-15 2020-04-19 Inpatient 1 Gregorio Muñoz [facility] PSY [id number] [facility] 19:14:00 14:20:00 MuñozGregorio [facility] 2020-04-15 2020-04-15 Inpatient 1 Gregorio Muñoz [facility] PSY [id number] St. 19:14:00 19:14:00 Muñoz, Gregorio [place] [id number] [facility] Results Test Description Test Time Test Comments [...] to the main Lab for analysis. POC [id number] 06:15:01 Test Item Value Reference Range Interpretation Comments Glucose POC (test 268 mg/dL 70-115 H Notify RN or MDIf you code = Glucose POC) consider your patient critically ill, the Mónica-Accu Chec k Infrom II meter should not be used for Glucos e determination. Draw a venous Glucose and send to the main Lab for analysis. POC [id number] 19:20:02 Test Item Value Reference Range Interpretation Comments Glucose POC (test 328 mg/dL 70-115 H If you con director employee safety and health your code = Glucose POC) patient critically ill, the Mónica-Accu Check Infrom II meter should not be used for Glucose determination. Draw a venous Glucose and send to the main Lab for analysis. POC [id number] 16:23:31 Test Item Value Reference Range Interpretation Comments Glucose POC (test 245 mg/dL 70-115 H Notify RN or MDIf you code = Glucose POC) consider your patient critically ill, the Mónica-Accu Chec k Infrom II meter should not be used for Glucos e determination. Draw a venous Glucose and send to the main Lab for analysis. POC [id number] 11:46:01 Test Item Value Reference Range Interpretation Comments Glucose POC (test 207 mg/dL 70-115 H Notify RN or MDIf you code = Glucose POC) consider your patient critically ill, the Mónica-Accu Chec k Infrom II meter should not be used for Glucos e determination. Draw a venous Glucose and send to the main Lab for analysis. POC [id number] 05:59:29 Test Item Value Reference Range Interpretation Comments Glucose POC (test 209 mg/dL 70-115 H If you con director employee safety and health your code = Glucose POC) patient critically ill, the Mónica-Accu Check Infrom II meter should not be used for Glucose determination. Draw a venous Glucose and send to the main Lab for analysis. POC [id number] 19:22:06 Test Item Value Reference Range Interpretation Comments Glucose POC (test 248 mg/dL 70-115 H Notify RN or MDIf you code = Glucose POC) consider your patient critically ill, the Mónica-Accu Chec k Infrom II meter should not be used for Glucos e determination. Draw a venous Glucose and send to the main Lab for analysis. POC [id number] 16:07:29 Test Item Value Reference Range Interpretation Comments Glucose POC (test 234 mg/dL 70-115 H If you con director employee safety and health your code = Glucose POC) patient critically ill, the Mónica-Accu Check Infrom II meter should not be used for Glucose determination. Draw a venous Glucose and send to the main Lab for analysis. POC [id number] 12:08:04 Test Item Value Reference Range Interpretation Comments Glucose POC (test 228 mg/dL 70-115 H Notify RN or MDIf you code = Glucose POC) consider your patient critically ill, the Mónica-Accu Chec k Infrom II meter should not be used for Glucos e determination. Draw a venous Glucose and send to the main Lab for analysis. POC [id number] 07:42:04 Test Item Value Reference Range Interpretation Comments Glucose POC (test 225 mg/dL 70-115 H Notify RN or MDIf you code = Glucose POC) consider your patient critically ill, the Mónica-Accu Chec k Infrom II meter should not be used for Glucos e determination. Draw a venous Glucose and send to the main Lab for analysis. RPR [id number] 21:08:15 Test Item Value Reference Range Interpretation Comments RPR Qual (test code = RPR Qual) Non-Reactive Non-Reactive Reactive Control (test code = Reactive Reactive Control) Weak Reactive Control (test Weak Reactive code = Weak Reactive Control) Non-Reactive Control (test code Non-Reactive = Non-Reactive Control) Lot # (test code = Lot #) [id number] Expiration Dt (test code = 04-10-2021 N Expiration Dt) POC [id number] 19:40:57 Test Item Value Reference Range Interpretation Comments Glucose POC (test 312 mg/dL 70-115 H If you con director employee safety and health your code = Glucose POC) patient critically ill, the Mónica-Accu Check Infrom II meter should not be used for Glucose determination. Draw a venous Glucose and send to the main Lab for analysis. POC [id number] 15:02:57 Test Item Value Reference Range Interpretation Comments Glucose POC (test 288 mg/dL 70-115 H Notify RN or MDIf you code = Glucose POC) consider your patient critically ill, the Mónica-Accu Chec k Infrom II meter should not be used for Glucos e determination. Draw a venous Glucose and send to the main Lab for analysis. POC [id number] 11:08:28 Test Item Value Reference Range Interpretation Comments Glucose POC (test 210 mg/dL 70-115 H Notify RN or MDIf you code = Glucose POC) consider your patient critically ill, the Mónica-Accu Chec k Infrom II meter should not be used for Glucos e determination. Draw a venous Glucose and send to the main Lab for analysis. Urine [id number] 08:33:09 Test Item Value Reference Range Interpretation [...] cfu/ml Diphtheroids C Urine Added by GL_SJM_UA_CUL_INDLipid [id number] 08:28:37 Test Item Value Reference Range Interpretation [...] LDL/HDL Ratio=L DL Calc/HDL Chol Thyroid Stimulating [id number] 08:28:37 Test Item Value Reference Range Interpretation Comments TSH (test code = TSH) 3.062 mcIU/mL 0.550-4.780 Hemoglobin [id number] 08:26:29 Test Item Value Reference Range Interpretation Comments Hemoglobin A1c (test code 10.1 % 4.0-5.8 H Di abetic >=6.5 = Hemoglobin A1c) %Prediabet es 5.7-6.4 %Normal <5.7 % POC [id number] 06:21:26 Test Item Value Reference Range Interpretation Comments Glucose POC (test 161 mg/dL 70-115 H If you con director employee safety and health your code = Glucose POC) patient critically ill, the Mónica-Accu Check Infrom II meter should not be used for Glucose determination. Draw a venous Glucose and send to the main Lab for analysis. Novel Coronavirus SARS-CoV-2, [id number] 23:27:42 Test Item Value Reference Range Interpretation [...] Drug Administration s Emergency Use Authorization." Urinalysis [id number] 20:43:53 Test Item Value Reference Range Interpretation Comments UA WBC (test code = UA WBC) 11-19 0-5 A UA RBC (test code = UA RBC) 6-10 0-5 A UA Bacteria (test code = UA Bacteria) Many A UA Squam Epithelial (test code = UA 11-19 A Squam Epithelial) UA Trans Epithelial (test code = UA 1-4 A Trans Epithelial) Comprehensive Metabolic [id number] 20:38:53 Test Item Value Reference Range Interpretation [...] Lipemia) 0 g/dL 1-2 H Comprehensive Metabolic [id number] 20:38:53 Test Item Value Reference Range Interpretation [...] = 0 g/dL 1-2 H Lipemia) Alcohol [id number] 20:38:53 Test Item Value Reference Range Interpretation Comments Ethanol Level 15.5 mg/dL N The pharmacolo gical (test code = response to blo od alcohol Ethanol Level) levels may va ry from individual to i ndividual. The fatal isra ntration has been report ed to be >400 mg/dl. Comprehensive Metabolic [id number] 20:38:53 Test Item Value Reference Range Interpretation [...] 1-2 H Lipemia) Urinalysis with Culture, if [id number] 20:35:26 Test Item Value Reference Range Interpretation [...] Not Indicated A Micro Ind?) HCG Qualitative [id number] 20:34:01 Test Item Value Reference Range Interpretation [...] 72 hours. Lot # (test code = [id number] N Lot #) Expiration Dt (test 03-11-21 N code = Expiration Dt) Neg Control (test Negative code = Neg Control) Pos Control (test Positive code = Pos Control) Internal QC (test Acceptable code = Internal QC) Urine [id number] 20:32:21 Test Item Value Reference Range Interpretation [...] thin 7 days. Complete Blood Count with [id number] 20:26:44 Test Item Value Reference Range Interpretation [...] = 0.00 x10 N NRBC Abs) Automated [id number] 20:26:44 Test Item Value Reference Range Interpretation Comments Neutro Auto (test code = Neutro 67.7 % 36.0-70.0 Auto) Lymph Auto (test code = Lymph Auto) 24.2 % 12.0-44.0 [place] Auto (test code = [place] Auto) 6.3 % 0.0-11.0 Eos, Auto (test code = Eos, Auto) 1.0 % 0.0-7.0 Basophil Auto (test code = Basophil 0.5 % 0.0-2.0 Auto) Neutro Absolute (test code = Neutro 7.8 x10 1.6-7.4 H Absolute) Lymph Absolute (test code = Lymph 2.81 x10 .50-4.60 Absolute) [place] Absolute (test code = [place] .73 x10 .00-1.20 Absolute) Eos Absolute (test code = Eos 0.12 x10 0.00-0.74 Absolute) Baso Absolute (test code = Baso 0.06 x10 0.00-0.21 Absolute) IG [id number] 20:26:44 Test Item Value Reference Range Interpretation Comments IG (test code = IG) 0.3 % 0.0-5.0 IG Abs (test code = IG Abs) 0 x10 N POC [id number] 19:31:55 Test Item Value Reference Range Interpretation Comments Glucose POC (test 235 mg/dL 70-115 H If you con director employee safety and health your code = Glucose POC) patient critically ill, the Mónica-Accu Check Infrom II meter should not be used for Glucose determination. Draw a venous Glucose and send to the main Lab for analysis. POCT-GLUCOSE [id number] 08:12:00 Test Item Value Reference Range Interpretation Comments POC-GLUCOSE METER 211 mg/dL 70-110 H : TESTED A T [facility] [address] ([facility]) (test code = JEANINEJIM VALIENTE, 1538) [address]: Nanotechnician/Techni kojo ID = [id number] for ALAN MCGEE CBC W/PLT COUNT & AUTO [id number] 03:50:00 Test Item Value Reference Range Interpretation Comments WHITE BLOOD CELL COUNT (KAMRYN) 10.7 K/ L 3.5-10.5 H (test code [...] PERCENT (BEAKER) (test code = 2801) POCT-GLUCOSE [id number] 22:42:00 Test Item Value Reference Range Interpretation Comments POC-GLUCOSE METER 262 mg/dL 70-110 H : Notified RN/MD: ([facility]) (test code = TESTED AT [place] [address]) [facility], [address]: Nanotechnician/Techni kojo ID = [id number] for MARIA D LIZARRAGA POCT-GLUCOSE [id number] 17:06:00 Test Item Value Reference Range Interpretation Comments POC-GLUCOSE METER 250 mg/dL 70-110 H : [facility]BE[facility]ER[facility] (test code = [facility], 153) [address]: Nanotechnician/Techni kojo ID = [id number] for ELMORE-GONZALEZ, JORDAN POCT-GLUCOSE [id number] 12:50:00 Test Item Value Reference Range Interpretation Comments POC-GLUCOSE METER 228 mg/dL 70-110 H : [facility] (test code = [facility], 153) [address]: Nanotechnician/Techni kojo ID = [id number] for ELMORE-GONZALEZ, JORDAN POCT-GLUCOSE [id number] 09:13:00 Test Item Value Reference Range Interpretation Comments POC-GLUCOSE METER 220 mg/dL 70-110 H : [facility] (BEAKER[facility] (test code = [facility], 153) [address]: Nanotechnician/Techni kojo ID = [id number] for JACOB SANDERS BASIC METABOLIC [id number] 05:55:00 Test Item Value Reference Range Interpretation [...] 1092) DATA TO CALCULA TE ESTIMATED GFR. Nanotechnician ID - GALAPCBC W/PLT COUNT & AUTO [id number] 05:21:00 Test Item Value Reference Range Interpretation [...] (test code = 416) BASOPHILS ABSOLUTE COUNT (AKER) 0.06 K/ L 0.01-0.08 (test code = 417) IMMATURE GRANULOCYTES-RELATIVE 1 % 0-1 PERCENT ([facility]) (test code = 2801) POCT-GLUCOSE [id number] 22:31:00 Test Item Value Reference Range Interpretation Comments POC-GLUCOSE METER 202 mg/dL 70-110 H : Notified RN/MD: ([facility]) (test code = TESTED AT [place] [address]) [facility], [address]: Nanotechnician/Techni kojo ID = [id number] for SA NCHEZ, SHALINI POCT-GLUCOSE [id number] 19:26:00 Test Item Value Reference Range Interpretation Comments POC-GLUCOSE METER 289 mg/dL 70-110 H : TESTED A T [place] [address] ([facility]) (test code = [facility], 153) [address]: Nanotechnician/Techni kojo ID = [id number] for TE E, AMALIA POCT-GLUCOSE [id number] 18:27:00 Test Item Value Reference Range Interpretation Comments POC-GLUCOSE METER 384 mg/dL 70-110 H : [facility]) (test code = [facility], 153) [address]: Nanotechnician/Techni kojo ID = [id number] for TE E, AMALIA POCT-GLUCOSE [id number] 17:45:00 Test Item Value Reference Range Interpretation Comments POC-GLUCOSE METER 418 mg/dL 70-110 HH : Notified RN/MD: ([facility]) (test code = TESTED AT [place] [address]) [facility], [address]: Nanotechnician/Techni kojo ID = [id number] for TE E, AMALIA RAD, CHEST, 1 VIEW, NON [id number] 14:44:00Reason for exam:->chest painShould this be performed at the bedside?->YesFINAL REPORT INDICATION: chest pain COMPARISON: None TECHNIQUE: Single frontal view of the chest. FINDINGS: Lungs and pleura: Clear lungs. No effusion.Heart and mediastinum: Normal heart size. Unremarkable mediastinal contours.Osseous structures: No acute abnormality.Other: None. IMPRESSION: No acute intrathoracic abnormality. Signed: JR Amador Robert MDReport Verified Date/Time: 08/21/2019 14:44:17 Reading Location: [facility] Radiology Reading Room POCT-GLUCOSE [id number] 12:50:00 Test Item Value Reference Range Interpretation Comments POC-GLUCOSE METER 294 mg/dL 70-110 H : TESTED A T [facility] [address] ([facility]) (test code = [facility], 1538) [address]: Nanotechnician/Techni kojo ID = [id number] for JORDAN PINTO HEMOGLOBIN [id number] 09:45:00 Test Item Value Reference Range Interpretation Comments HEMOGLOBIN A1C (KAMRYN) (test code = 14.1 % 4.3-6.1 H 368) POCT-GLUCOSE [id number] 08:50:00 Test Item Value Reference Range Interpretation Comments POC-GLUCOSE METER 209 mg/dL 70-110 H : TESTED A T [facility] 67[address] (BEAKER) (test code = [facility], 1538) [address]: Nanotechnician/Techni kojo ID = [id number] for FRAN BERRIOS TROPONIN [id number] 05:22:00 Test Item Value Reference Range Interpretation [...] failure, acidosis, acute neurological disease, and persistent tachyarrhythmia.Nanotechnician ID - BRAD WBASIC METABOLIC [id number] 05:10:00 Test Item Value Reference Range Interpretation [...] 1092) DATA TO CALCULA TE ESTIMATED GFR. Nanotechnician ID Ny SALINAS [id number] 04:55:00 Test Item Value Reference Range Interpretation Comments MAGNESIUM (BEAKER) (test code = 1.8 mg/dL 1.6-2.6 627) Nanotechnician ID - BRAD WCBC W/PLT COUNT & AUTO [id number] 04:40:00 Test Item Value Reference Range Interpretation [...] PERCENT (BEAKER) (test code = 2801) TROPONIN [id number] 23:14:00 Test Item Value Reference Range Interpretation [...] failure, acidosis, acute neurological disease, and persistent tachyarrhythmia.Nanotechnician ID - KENNFastingB-TYPE NATRIURETIC FACTOR (BNP)2019-08-20 23:05:00 Test Item Value Reference Range Interpretation Comments B-TYPE NATRIURETIC PEPTIDE (BEAKER) 145 pg/mL 0-100 H (test code = 700) Nanotechnician ID - KENNBASIC METABOLIC [id number] 23:04:00 Test Item Value Reference Range Interpretation [...] 1092) DATA TO CALCULA TE ESTIMATED GFR. Nanotechnician ID - KENNFastingLIPID [id number] 23:01:00 Test Item Value Reference Range Interpretation [...] Borderline 130-159 High 160-189 Very High >=190 Nanotechnician ID - KENNFastingCBC (HEMOGRAM ONLY)2019-08-20 22:35:00 Test [...] 0-0 (BEAKER) (test code = 413) POCT-GLUCOSE [id number] 22:02:00 Test Item Value Reference Range Interpretation Comments POC-GLUCOSE METER 245 mg/dL 70-110 H : TESTED A T [place] [address] (BEAKER) (test code [facility], = 1538) [address]: Nanotechnician/Techni kojo ID = [id number] for MEGHNA VENTURA [id number] 20:12:00 Test Item Value Reference Range Interpretation Comments ACTIVATED CLOTTING TIME 307 sec Refe rence Range: (BEAKER) (test code = 74-137 seconds, 441) Baseline/TESTED AT [place] [id number] [facility] [address] 0 [id number] 19:35:00 Test Item Value Reference Range Interpretation Comments ACTIVATED CLOTTING TIME 263 sec Refe rence Range: (BEAKER) (test code = 74-137 seconds, 441) Baseline/TESTED AT [place] [address] [facility] [address] 0 [id number] 19:20:00 Test Item Value Reference Range Interpretation Comments ACTIVATED CLOTTING TIME 279 sec Refe rence Range: (BEAKER) (test code = 74-137 seconds, 441) Baseline/TESTED AT [place] [address] [facility] [address] 0 [id number] 18:57:00 Test Item Value Reference Range Interpretation Comments ACTIVATED CLOTTING TIME 202 sec Refe rence Range: (BEAKER) (test code = 74-137 seconds, 441) Baseline/TESTED AT [place] [address] [facility] [address] 0 [id number] 18:48:00 Test Item Value Reference Range Interpretation Comments ACTIVATED CLOTTING TIME 120 sec Refe rence Range: (BEAKER) (test code = 74-137 seconds, 441) Baseline/TESTED AT [place] [address] [facility] 770 0 POC Glucose, [id number] 10:38:00 Test Item Value Reference Range Interpretation Comments POC Glucose (test 182 mg/dL 70-115 H Notify RN or MDIf you code = POCGLUC) consider you r patient critically ill, the Mónica Accu-Chek InformII metershould not be used for Glucose determinations. Draw a venous Glucose and send to the Main Lab for Analysis. Glycosylated [id number] 06:54:00 Test Item Value Reference Range Interpretation Comments HBA1c (test code = HBA1C) 8.1 % 4.8-5.9 H POC Glucose, [id number] 05:00:00 Test Item Value Reference Range Interpretation Comments POC Glucose (test 236 mg/dL 70-115 H Notify RN or MDIf you code = POCGLUC) consider you r patient critically ill, the Mónica Accu-Chek InformII metershould not be used for Glucose determinations. Draw a venous Glucose and send to the Main Lab for Analysis. POC Glucose, [id number] 20:22:00 Test Item Value Reference Range Interpretation Comments POC Glucose (test 225 mg/dL 70-115 H Notify RN or MDIf you code = POCGLUC) consider you r patient critically ill, the Mónica Accu-Chek InformII metershould not be used for Glucose determinations. Draw a venous Glucose and send to the Main Lab for Analysis. POC Glucose, [id number] 14:54:00 Test Item Value Reference Range Interpretation Comments POC Glucose (test 239 mg/dL 70-115 H Notify RN or MDIf you code = POCGLUC) consider you r patient critically ill, the Mónica Accu-Chek InformII metershould not be used for Glucose determinations. Draw a venous Glucose and send to the Main Lab for Analysis. POC Glucose, [id number] 10:20:00 Test Item Value Reference Range Interpretation Comments POC Glucose (test 269 mg/dL 70-115 H Notify RN or MDIf you code = POCGLUC) consider you r patient critically ill, the Mónica Accu-Chek InformII metershould not be used for Glucose determinations. Draw a venous Glucose and send to the Main Lab for Analysis. POC Glucose, [id number] 05:22:00 Test Item Value Reference Range Interpretation Comments POC Glucose (test 179 mg/dL 70-115 H Notify RN or MDIf you code = POCGLUC) consider you r patient critically ill, the Mónica Accu-Chek InformII metershould not be used for Glucose determinations. Draw a venous Glucose and send to the Main Lab for Analysis. POC Glucose, [id number] 20:36:00 Test Item Value Reference Range Interpretation Comments POC Glucose (test 342 mg/dL 70-115 H Notify RN or MDIf you code = POCGLUC) consider you r patient critically ill, the Mónica Accu-Chek InformII metershould not be used for Glucose determinations. Draw a venous Glucose and send to the Main Lab for Analysis. POC Glucose, [id number] 16:52:00 Test Item Value Reference Range Interpretation Comments POC Glucose (test 217 mg/dL 70-115 H Notify RN or MDIf you code = POCGLUC) consider you r patient critically ill, the Mónica Accu-Chek InformII metershould not be used for Glucose determinations. Draw a venous Glucose and send to the Main Lab for Analysis. RPR, [id number] 12:32:00 Test Item Value Reference Range Interpretation Comments RPR (test code = RPR) Non-Reactive Non-Reactive N POC Glucose, [id number] 11:16:00 Test Item Value Reference Range Interpretation Comments POC Glucose (test 250 mg/dL 70-115 H If you con director employee safety and health your code = POCGLUC) patient crit ically ill, the Mónica Accu- Chek InformII meters hould not be used for Glu cose determinations. Draw a venous Glucose and send to the Main Lab for Analysis. Lipid [id number] 08:51:00 Test Item Value Reference Range Interpretation Comments Cholesterol (test 225 mg/dL 0-200 H code = CHOL) Triglycerides (test 169 mg/dL 9-200 N code = TRIG) HDL (test code = 38 mg/dL 50-60 L HDL) Chol/HDL (test code 5.9 Ratio 0.0-4.4 H = CHOLPHDL) LDL, Calculated 153 0-130 H (NOTE)RISK O F HEART (test code = LDLC) DISEASEPu blished by [place] Heart AssociationAnal yte Optim al Boderline Increased RiskC HOL <200 200-239 >240TRI G <150 150-199 >200HDL Male: >60 <40HDL Female: >60 <50 LDL < 100 130-15 9 >160 LDL NEAR OPTIMAL IS 100- 129 VLDL (test code = 34 mg/dL 5-40 N VLDL) LDL/HDL (test code = 4 LDLPHDL) BHCG, Serum, [id number] 08:46:00 Test Item Value Reference Range Interpretation Comments B hCG, Quant (test <1 mIU/mL Weeks of Gestation code = BHCGQT) Ranges (mIU/m L)3 weeks 5. 40 - 72.04 weeks 10.2 - 7085 w eeks 217 - 87615 weeks 152 - 687656 weeks 4059 - 153 7678 weeks 25122 - 3987722 weeks 591 09 - [id number] weeks 45249 - 1704 0912 weeks 22070 - [id number] week s 88405 - 93 51750 weeks 94823 - 8183770 weeks 8904 - 5533 217 weeks 82 40 - 6355257 weeks 9649 - 40688 Thyroid Stimulating Hormone (TSH)2017-10-15 08:46:00 Test Item Value Reference Range Interpretation Comments TSH (test code = TSH) 1.57 mIU/mL 0.270-4.200 N RPR, [id number] 06:18:00 Test Item Value Reference Range Interpretation Comments RPR (test code = RPR) Non-Reactive Non-Reactive N POC Glucose, [id number] 06:09:00 Test Item Value Reference Range Interpretation Comments POC Glucose (test 162 mg/dL 70-115 H Notify RN or MDIf you code = POCGLUC) consider you r patient critically ill, the [place] Accu-Chek InformII metershould not be used for Glucose determinations. Draw a venous Glucose and send to the Main Lab for Analysis. POC Glucose, [id number] 19:20:00 Test Item Value Reference Range Interpretation Comments POC Glucose (test 201 mg/dL 70-115 H If you con director employee safety and health your code = POCGLUC) patient crit ically ill, the [place] Accu- Chek InformII meters hould not be used for Glu cose determinations. Draw a venous Glucose and send to the Main Lab for Analysis. Thyroid Stimulating Hormone (TSH)2017-10-14 18:05:00 Test Item Value Reference Range Interpretation Comments TSH (test code = TSH) 1.03 mIU/mL 0.270-4.200 N POC Glucose, [id number] 17:34:00 Test Item Value Reference Range Interpretation Comments POC Glucose (test 141 mg/dL 70-115 H If you con director employee safety and health your code = POCGLUC) patient crit ically ill, the [place] Accu- Chek InformII meters hould not be used for Glu cose determinations. Draw a venous Glucose and send to the Main Lab for Analysis. BHCG, Serum, [id number] 14:56:00 Test Item Value Reference Range Interpretation Comments Preg Qual [Se] (test code = BSHCG) Negative Negative N Lipid [id number] 14:55:00 Test Item Value Reference Range Interpretation Comments Cholesterol (test 242 mg/dL 0-200 H code = CHOL) Triglycerides (test 134 mg/dL 9-200 N code = TRIG) HDL (test code = 44 mg/dL 50-60 L HDL) Chol/HDL (test code 5.5 Ratio 0.0-4.4 H = CHOLPHDL) LDL, Calculated 171 mg/dL 0-130 H (NOTE)RISK O F HEART (test code = LDLC) DISEASEPu blished by [place] Heart AssociationAnal yte Optim al Boderline Increased RiskC HOL <200 200-239 >240TRI G <150 150-199 >200HDL Male: >60 <40HDL Female: >60 <50 LDL < 100 130-15 9 >160 LDL NEAR OPTIMAL IS 100- 129 VLDL (test code = 27 mg/dL 5-40 N VLDL) LDL/HDL (test code = 4 LDLPHDL) Urinalysis [id number] 13:20:00 Test Item Value Reference Range Interpretation Comments Color (test code = COLOR) Yellow Yellow,Straw,Pl N yellow Clarity (test code = Clear Clear N CLAR) Specific [place] (test 1.024 1.001-1.035 N code = SPGR) [...] Bacteria (test code = Moderate /HPF BACT) [id number] 13:16:00 Test Item Value Reference Range Interpretation [...] 0.00-0.01 N code = ETOHU) Comprehensive Metabolic [id number] 13:16:00 Test Item Value Reference Range Interpretation [...] validated by th e MDRD study and shoul d be interpretedwith caution.eGFR Re sult Interpretation: eGFR > or = 60 is in t he Normal RangeeGF R < 60 may mean kidney diseaseeGFR < 1 5 may mean kidney failureRange s recommended by the National Kidney Foundation,http ://nkd ep.nih.gov CBC with [id number] 13:08:00 Test Item Value Reference Range Interpretation [...] code = ALYMPH) 2.5 K/cumm 0.5-4.6 N [place] Abs (test code = AMONO) 0.3 K/cumm 0.0-1.2 N Eos Abs (test code = AEOS) 0.06 K/cumm 0.00-0.74 N Baso Abs (test code = ABASO) 0.1 K/cumm 0.00-0.21 N
--- NOTE | 2022-01-29 19:46 | ER ---
Nurse's Notes [facility] Name: Chelsi Brice Age: 46 yrs Sex: Female : 1975 Arrival Date: 01/29/2022 Time: 19:22 Bed 18 Private MD: Diagnosis: Chest pain, unspecified;Anxiety disorder, unspecified Presentation: 01/29 19:35 Chief complaint: Spouse and/or significant other states: PATIENT SPOUSE STATED SHE IS 1 HAVING AN ANXIETY ATTACK AFTER HER MEDS WERE CHANGED BY HER PRIMARY. Coronavirus screen: Vaccine status: Patient reports receiving the 2nd dose of the covid vaccine. At this time, the client does not indicate any symptoms associated with coronavirus-19. Ebola Screen: Patient negative for fever greater than or equal to 101.5 degrees Fahrenheit, and additional compatible Ebola Virus Disease symptoms. Initial Sepsis Screen: Does the patient meet any 2 criteria? No. Patient's initial sepsis screen is negative. Does the patient have a suspected source of infection? No. Patient's initial sepsis screen is negative. Risk Assessment: Do you want to hurt yourself or someone else? Patient reports no desire to harm self or others. Onset of symptoms was January 29, 2022. 19:35 Method Of Arrival: Ambulatory located within [facility] 19:35 Acuity: EDIS 3 located within [facility] Triage Assessment: 19:37 General: Appears in no apparent distress. uncomfortable, Behavior is anxious. Pain: located within [facility] Complains of pain in chest. Historical: - PMHx: 19:36 Diabetes - IDDM; Heart Murmur; Hyperlipidemia; Myocardial infarction; Panic Attacks; 1 - Immunization history:: Adult Immunizations up to date. - Social history:: Smoking status: Patient denies any tobacco usage or history of. Screenin:58 Abuse screen: Denies threats or abuse. Nutritional screening: No deficits noted. jb4 Tuberculosis screening: No symptoms or risk factors identified. Fall Risk None identified. Assessment: 22:58 General: Appears in no apparent distress. uncomfortable, Behavior is cooperative, jb4 anxious. Pain: Denies pain. Neuro: Level of Consciousness is awake, alert, obeys commands, Oriented to person, place, time, situation. Cardiovascular: Patient's skin is warm and dry. Respiratory: Airway is patent Respiratory effort is even, unlabored, Respiratory pattern is regular, symmetrical. GI: No signs and/or symptoms were reported involving the gastrointestinal system. : No signs and/or symptoms were reported regarding the genitourinary system. EENT: No signs and/or symptoms were reported regarding the EENT system. Derm: Skin is intact, Skin is pink, warm \T\ dry. Musculoskeletal: Circulation, motion, and sensation intact. Range of motion: intact in all extremities. 23:44 Reassessment: Patient appears in no apparent distress at this time. Patient and/or jb4 family updated on plan of care and expected duration. Pain level reassessed. Patient is alert, oriented x 3, equal unlabored respirations, skin warm/dry/pink. 01/30 00:30 Reassessment: Patient appears in no apparent distress at this time. Patient and/or jb4 family updated on plan of care and expected duration. Pain level reassessed. Patient is alert, oriented x 3, equal unlabored respirations, skin warm/dry/pink. Vital Signs: 01/29 19:35 BP 148 / 88; Pulse 94; Resp 18; Temp 97.5; Pulse Ox 98% on R/A; Weight 74.84 kg; Height bh1 5 ft. 3 in. (160.02 cm); Pain 0/10; 22:58 BP 108 / 73; Pulse 64; Resp 18; Pulse Ox 98% on R/A; jb4 23:30 BP 105 / 73; Pulse 63; Resp 16; Pulse Ox 96% on R/A; jb4 01/30 00:30 BP 105 / 62; Pulse 59; Resp 16; Pulse Ox 96% on R/A; 4 01/29 19:35 Body Mass Index 29.23 (74.84 kg, 160.02 cm) located within [facility] ED Course: 01/29 19:22 Patient arrived in ED. jj6 19:29 Jose Cleary DO is Attending Physician. ms3 19:36 Triage completed. bh1 19:37 Arm band placed on left wrist. bh1 20:42 Acetaminophen Sent. bh1 20:42 Basic Metabolic Panel Sent. bh1 20:42 CBC with Diff Sent. bh1 20:42 ETOH Level Sent. bh1 20:42 Hepatic Function Sent. bh1 20:42 PT-INR Sent. bh1 20:42 Ptt, Activated Sent. bh1 20:43 Salicylate Sent. bh1 20:43 Urine Drug Screen Sent. bh1 20:50 Troponin HS Sent. bh1 21:33 XRAY Chest (1 view) In Process Unspecified. EDMS 22:21 Bobby Nolasco, RN is Primary Nurse. jb4 22:58 Patient has correct armband on for positive identification. Bed in low position. Call jb4 light in reach. Side rails up X 1. Client placed on continuous cardiac and pulse oximetry monitoring. NIBP monitoring applied. quality assurance monitor on. 22:58 No provider procedures requiring assistance completed. Flushed right antecubital with 5 jb4 ml normal saline. 01/30 00:04 contacted [facility] to have a screener evaluate the patient. mw2 00:12 Brian Young MD is Referral Physician. ms3 00:12 Isidoro Martinez MD is Referral Physician. ms3 00:30 IV discontinued, intact, bleeding controlled, No redness/swelling at site. Pressure jb4 dressing applied. Administered Medications: 01/29 22:43 Drug: Ativan (LORazepam) 1 mg Route: IVP; Site: right antecubital; jb4 23:15 Follow up: Response: No adverse reaction; Marked relief of symptoms; Anxiety decreased jb4 23:06 Not Given (medication unavailable. Provider notified.): cefPODOXime 100 mg PO once jb4 Medication: 22:58 VIS not applicable for this client. jb4 Outcome: 19:45 Patient left the ED. ms3 01/30 00:13 Discharge ordered by . ms3 00:30 Discharged to home ambulatory, with family. jb4 00:30 Condition: stable 00:30 Discharge instructions given to patient, Instructed on discharge instructions, follow up and referral plans. medication usage, Demonstrated understanding of instructions, follow-up care, medications, Prescriptions given X 1. 00:36 Patient left the ED. jb4 Signatures: Dispatcher [employer] EDMS Bobby Nolasco, RN RN jb4 Justo Taylor mw2 Jose Cleary DO DO ms3 Rena Bacon jj6 Aneta Pretty RN RN bh1 Corrections: (The following items were deleted from the chart) 01/29 23:45 23:30 BP 105 / 73; Pulse 63bpm; Resp 16bpm; Pulse Ox 93% RA; jb4 jb4
--- NOTE | 2022-01-29 19:46 | EDPHYS ---
Physician Documentation [facility] Name: Chelsi Brice Age: 46 yrs Sex: Female : 1975 Arrival Date: 01/29/2022 Time: 19:22 Bed 18 Private MD: ED Physician Jose Cleary HPI: 01/29 21:57 This 46 yrs old Female presents to ER via Ambulatory with complaints of Anxiety, Recent ms3 changes to prescription medication, having side effects. 21:57 46-year-old female with past medical history of diabetes, hyperlipidemia, myocardial ms3 infarction, heart murmur presents for depression and anxiety that has been ongoing for 4 days. Patient states medications were changed 2 weeks ago. Patient's notes patient has been crying, not eating, depressed . patient states that she developed chest pain that began this morning. Patient rates the discomfort a 4/10 and describes it as pressure. Patient denies nausea, vomiting.. Historical: - PMHx: 19:36 Diabetes - IDDM; Heart Murmur; Hyperlipidemia; Myocardial infarction; Panic Attacks; bh1 - Immunization history:: Adult Immunizations up to date. - Social history:: Smoking status: Patient denies any tobacco usage or history of. ROS: 21:57 Constitutional: Negative for fever, and chills. Neck: Negative for injury, pain, and ms3 swelling, Cardiovascular: Negative for chest pain, and palpitations. Respiratory: Negative for shortness of breath, cough, wheezing, and pleuritic chest pain, Abdomen/GI: Negative for abdominal pain, nausea, vomiting, diarrhea, and constipation, MS/Extremity: Negative for injury and deformity, Skin: Negative for injury, rash, and discoloration. 21:57 Psych: Positive for anxiety, depression. 21:57 All other systems are negative. Exam: 21:57 Constitutional: This is a well developed, well nourished patient who is awake, alert, ms3 and in no acute distress. Eyes: Pupils equal round and reactive to light, extra-ocular motions intact. Lids and lashes normal. Conjunctiva and sclera are non-icteric and not injected. Periorbital areas with no swelling, redness, or edema. Neck: Trachea midline, no cervical lymphadenopathy. Supple, full range of motion without nuchal rigidity, or vertebral point tenderness. No Meningismus. Chest/axilla: Normal chest wall appearance and motion. Nontender with no deformity. Cardiovascular: Regular rate and rhythm with a normal S1 and S2. No gallops, murmurs, or rubs. Normal PMI, no JVD. No pulse deficits. Respiratory: Lungs have equal breath sounds bilaterally, clear to auscultation and percussion. No rales, rhonchi or wheezes noted. No increased work of breathing, no retractions or nasal flaring. Abdomen/GI: Soft, non-tender, with normal bowel sounds. No distension or tympany. No guarding or rebound. No evidence of tenderness throughout. Skin: Warm, dry with normal turgor. Normal color with no rashes, no lesions, and no evidence of cellulitis. MS/ Extremity: Pulses equal, no cyanosis. Neurovascular intact. Full, normal range of motion. 21:57 Psych: Behavior/mood is anxious, Affect is calm, Oriented to person, place, time, Patient has no thoughts/intents to harm self or others. Judgement / Insight is normal. Memory is normal. Delusions/hallucinations are not present. 22:56 ECG was reviewed by the Attending Physician. ms3 Vital Signs: 19:35 BP 148 / 88; Pulse 94; Resp 18; Temp 97.5; Pulse Ox 98% on R/A; Weight 74.84 kg; Height bh1 5 ft. 3 in. (160.02 cm); Pain 0/10; 22:58 BP 108 / 73; Pulse 64; Resp 18; Pulse Ox 98% on R/A; jb4 23:30 BP 105 / 73; Pulse 63; Resp 16; Pulse Ox 96% on R/A; jb4 01/30 00:30 BP 105 / 62; Pulse 59; Resp 16; Pulse Ox 96% on R/A; jb4 01/29 19:35 Body Mass Index 29.23 (74.84 kg, 160.02 cm) bh MDM: 01/29 19:45 Medical screening is not applicable. ms3 21:57 Differential diagnosis: abnormal EKG, acute myocardial infarction, anxiety, Depression. ms3 01/30 00:13 HEART Score: History: Slightly Suspicious (0), ECG: Normal (0), Age: > 45 and < 65 ms3 years (1), Risk Factors: 1 or 2 risk factors (1), [Hypertension] [DM] Troponin: < or = 1 x Normal Limit (0), Total Score = 2. Data reviewed: vital signs, nurses notes, lab test result(s), EKG, radiologic studies, and as a result, I will discharge patient. Counseling: I had a detailed discussion with the patient and/or guardian regarding: the historical points, exam findings, and any diagnostic results supporting the discharge/admit diagnosis, lab results, radiology results, the need for outpatient follow up, to return to the emergency department if symptoms worsen or persist or if there are any questions or concerns that arise at home. ED course: Discussed transfer to psychiatric hospital with patient and her and patient and her decline. Patient is without SI, HI, or hallucinations. On reevaluation patient is alert and oriented x4, in no apparent distress, nontoxic-appearing, speaking full sentences, ambulatory in emergency department. . 02:19 HEART Score:. ms3 01/29 20:20 Order name: Acetaminophen; Complete Time: 22:13 ms3 01/29 20:20 Order name: Basic Metabolic Panel; Complete Time: 22:13 ms3 01/29 20:20 Order name: CBC with Diff; Complete Time: 21:17 ms3 01/29 20:20 Order name: ETOH Level; Complete Time: 21:17 ms3 01/29 20:20 Order name: Hepatic Function; Complete Time: 22:13 ms3 01/29 20:20 Order name: PT-INR; Complete Time: 21:17 ms3 01/29 20:20 Order name: Ptt, Activated; Complete Time: 21:17 ms3 01/29 20:20 Order name: Salicylate; Complete Time: 22:13 ms3 01/29 20:20 Order name: Urine Drug Screen; Complete Time: 21:17 ms3 01/29 20:20 Order name: Troponin HS; Complete Time: 22:13 ms3 01/29 20:20 Order name: XRAY Chest (1 view); Complete Time: 22:13 ms3 01/29 20:50 Order name: Urine Dipstick-Ancillary; Complete Time: 21:17 EDMS 01/29 22:14 Order name: SARS RAPID; Complete Time: 23:15 ms3 01/29 20:20 Order name: EKG; Complete Time: 20:22 ms3 07/21 20:20 Order name: EKG - Nurse/Tech; Complete Time: 23:01 ms3 01/29 20:20 Order name: IV Saline Lock; Complete Time: 20:42 ms3 01/29 20:20 Order name: Labs collected and sent; Complete Time: 20:42 ms3 01/29 20:20 Order name: Suicide Screening ([place]); Complete Time: 20:43 ms3 01/29 20:20 Order name: Urine Dipstick-Ancillary (obtain specimen); Complete Time: 20:42 ms3 01/29 20:20 Order name: Cardiac monitoring; Complete Time: 22:57 ms3 01/29 20:20 Order name: O2 Per Protocol; Complete Time: 22:57 ms3 01/29 20:20 Order name: O2 Sat Monitoring; Complete Time: 22:57 ms3 01/29 21:00 Order name: Urine Test (obtain specimen); Complete Time: 21:00 mw2 EC/21 22:56 Rate is 60 beats/min. Rhythm is regular. QRS [place] is Normal. Clinical impression: ms3 Normal ECG. Interpreted by me. Reviewed by me. Administered Medications: 22:43 Drug: Ativan (LORazepam) 1 mg Route: IVP; Site: right antecubital; jb4 23:15 Follow up: Response: No adverse reaction; Marked relief of symptoms; Anxiety decreased jb4 23:06 Not Given (medication unavailable. Provider notified.): cefPODOXime 100 mg PO once jb4 Disposition Summary: 01/30/22 00:13 Discharge Ordered Location: Home ms3 Condition: Stable ms3 Diagnosis - Chest pain, unspecified ms3 - Anxiety disorder, unspecified ms3 Followup: ms3 - With: Brian Young MD - When: 1 - 2 days - Reason: Recheck today's complaints Followup: ms3 - With: Isidoro Martinez MD - When: 1 - 2 days - Reason: Recheck today's complaints Discharge Instructions: - Discharge Summary Sheet ms3 - Panic Attack ms3 - Nonspecific Chest Pain, Adult ms3 - Urinary Tract Infection, Adult ms3 Forms: - Medication Reconciliation Form ms3 - Thank You Letter ms3 - Antibiotic Education ms3 - Prescription Opioid Use ms3 Prescriptions: - cefpodoxime 100 mg Oral Tablet - take 1 tablet by ORAL route every 12 hours for 7 days take with food; 14 ms3 tablet; Refills: 0, Product Selection Permitted Signatures: Dispatcher [employer] Bobby Dooley, RN RN jb4 Justo Taylor mw2 Jose Cleary DO DO ms3 Aneta Pretty, RN RN bh1 Corrections: (The following items were deleted from the chart) 21:55 19:45 before being seen by provider ms3 kb 21:55 19:45 wait time ms3 kb
[2022-01-29 19:51] VITALS: TEMP 97.5
[2022-01-29 20:49] LABS: Urine Blood Trace-lysed (Negative); Urine Glucose 2+ (Negative); Urine Protein 1+ (Negative); Urine Specific Gravity >=1.030 (1.005-1.030)
[2022-01-29 20:52] LABS: Absolute Lymphocytes (CBC) 2.9 K/uL (0.7-4.9); Hematocrit 46.4 % (36.0-45.0); Lymphocytes % 28.1 % (15.3-44.8); MCV 88.5 fL (80-100); MPV 7.4 fL (7.6-11.3); RBC Red Blood Cell Count 5.24 M/uL (3.86-4.86)
[2022-01-29 20:58] LABS: Protime INR 0.92
[2022-01-29 21:15] LABS: Barbiturates NEGATIVE (NEGATIVE); Benzodiazepines POSITIVE (NEGATIVE); Cocaine NEGATIVE (NEGATIVE); METHAMPHETAM NEGATIVE (NEGATIVE); Methadone NEGATIVE (NEGATIVE); Opiates NEGATIVE (NEGATIVE); Phencyclidine NEGATIVE (NEGATIVE); THC Cannibis POSITIVE (NEGATIVE)
[2022-01-29 21:17] LABS: ALT/SGPT 25 U/L (12-78); AST/SGOT 11 U/L (15-37); Alkaline Phosphatase 98 U/L (45-117); BUN Blood Urea Nitrogen 11 mg/dL (7-18); Bicarbonate 25 mmol/L (21-32); Bilirubin Direct 0.1 mg/dL (0-0.2); Bilirubin Total 0.4 mg/dL (0.2-1.0); Glomerular Filtration Rate 91 ml/min (=/>90); Glucose Level 212 mg/dL (74-106); Potassium 3.4 mmol/L (3.5-5.1); Protein, Total 7.8 g/dL (6.4-8.2); Sodium Level 138 mmol/L (136-145)
[2022-01-29 21:20] LABS: Troponin High Sensitivity 25.1 pg/mL (<58.9)
--- NOTE | 2022-01-29 21:39 | RAD REPORT ---
EXAM DESCRIPTION: RAD - Chest Single View - 01/29/2022 9:32 pm CLINICAL HISTORY: CHEST PAIN COMPARISON: Chest Single View dated 09/16/2021 FINDINGS: Lines: None. Lungs: No evidence of edema or pneumonia. Pleural: No significant pleural effusions or pneumothorax. Cardiac: The heart size is within normal limits. Bones: No acute fractures. Other: IMPRESSION: No acute cardiopulmonary disease.
[2022-01-29] MEDS ORDERED: LORazepam 2 MG/ML VIAL ONE (22:46)
[2022-01-29 23:02] LABS: SARS-CoV-2 Antigen Rapid Res Negative (Negative)
[2022-01-30 02:57] VITALS: BP 105/73; O2SAT 96
--- NOTE | 2022-01-31 06:22 | EKG ---
Test Date: 2022-01-29 Test Time: 22:56:19 Brineyard Supervisor: LIZ MEASUREMENT RESULTS: Intervals: Rate: 60 CT: 158 QRSD: 82 QT: 440 QTc: 440 [place]: P: 45 CT: 158 QRS: 12 T: -4 INTERPRETIVE STATEMENTS: Normal sinus rhythm Low voltage QRS Borderline ECG Compared to ECG 09/16/2021 16:38:50 Myocardial infarct finding no longer present Electronically Signed On 01-31-22 06:21:56 CDT by Christopher Ferguson
== END 2022-01-30 00:36 | disposition home or self-care (01) ==
LOC: ER 19:18
DX: R07.89 Other chest pain (principal); F41.9 Anxiety disorder, unspecified; E11.9 Type 2 diabetes mellitus without complications; I10 Essential (primary) hypertension; Z20.822 Contact with and (suspected) exposure to COVID-19
CPT/HCPCS: 36415; 71045; 80048; 80076; 80307; 80320; 80329; 81003; 84484; 85025; 85610; 85730; 87811; 93005; 96374; 99284

== ENCOUNTER 2024-03-08 14:16 | Emergency (ER) | payer OTHER ==
[2024-03-08 15:24] LABS: Absolute Basophils 0.1 K/uL (0-0.5); Absolute Eosinophils 0.1 K/uL (0-0.5); Absolute Lymphocytes (CBC) 1.5 K/uL (0.7-4.9); Absolute Monocytes 0.3 K/uL (0.1-1.3); Absolute Neutrophil 5.5 K/uL (1.8-8.0); Basophils % 0.8 % (0-1.3); Eosinophils % 1.6 % (0-4.4); Hematocrit 48.2 % (36.0-45.0); Hemoglobin 15.5 g/dL (12.0-15.0); Lymphocytes % 20.2 % (15.3-44.8); MCH 28.3 pg (27.0-35.0); MCHC 32.1 g/dL (32.0-36.0); MCV 88.2 fL (80-100); MPV 7.4 fL (7.6-11.3); Monocytes % 4.6 % (3.3-12.3); Neutrophils % 72.8 % (41.7-73.7); Platelets 336 thou/uL (152-406); RBC Red Blood Cell Count 5.47 M/uL (3.86-4.86); Red Cell Distribution Width 13.8 % (12.1-15.2)
[2024-03-08 15:30] LABS: PT Prothrombin Time 10.9 SECONDS (9.4-12.5); PTT, Activated Partial Thromb 30.5 SECONDS (24.3-36.9); Protime INR 0.97
[2024-03-08 15:33] LABS: Specific Gravity 1.011 (1.005-1.030)
[2024-03-08 15:38] LABS: Specific Gravity 1.011 (1.005-1.030); Urine Bacteria <20 /HPF (<20); Urine Bilirubin NEGATIVE (Negative); Urine Blood Trace (Negative); Urine Clarity Extremely Turbid (Clear); Urine Color Yellow (Yellow); Urine Crystals Unidentified Few /HPF (None Seen); Urine Culture Reflex Order REFLEXED; Urine Glucose 3+ (Negative); Urine Ketones TRACE (Negative); Urine Microscopic Reflex YN ORDER UMIC; Urine Mucus 1+ /HPF (None Seen); Urine Nitrite NEGATIVE (Negative); Urine Protein 2+ (Negative); Urine RBC <5 /HPF (None Seen); Urine Urobilinogen Normal (Normal); Urine WBC 20-50 /HPF (<5); Urine Yeast (Budding) Occasional /HPF (None Seen)
[2024-03-08 15:41] LABS: ALT/SGPT 55 U/L (13-56); AST/SGOT 22 U/L (15-37); Albumin 3.6 g/dL (3.4-5.0); Albumin/Globulin Ratio 0.9 (1.1-1.8); Alkaline Phosphatase 96 U/L (45-117); Anion Gap 10.3 mEq/L (5.0-15.0); BUN Blood Urea Nitrogen 15 mg/dL (7-18); Bicarbonate 26 mEq/L (21-32); Bilirubin Total 0.5 mg/dL (0.2-1.0); Globulin 4.2 g/dL (2.3-3.5); Glomerular Filtration Rate 63 ml/min (=/>90); Glucose Level 294 mg/dL (74-106); Potassium 4.3 mEq/L (3.5-5.1); Protein, Total 7.8 g/dL (6.4-8.2); Sodium Level 133 mEq/L (136-145)
[2024-03-08 15:45] LABS: Bilirubin Direct < 0.2 mg/dL (0-0.2); Bilirubin Indirect, Calculated 0.3 mg/dL (0.2-0.8)
[2024-03-08] MEDS ORDERED: ALPRAZOLAM 1 MG TABLET ONE (15:47)
--- NOTE | 2024-03-08 17:56 | ER ---
Nurse's Notes [facility] Name: Chelsi Brice Age: 48 yrs Sex: Female : 1975 Arrival Date: 03/08/2024 Time: 14:16 Bed 19 Private MD: Diagnosis: Suicidal ideations Presentation: 03/08 14:40 Chief complaint: Patient states: she got into a verbal altercation with her and kc6 was holding a knife. states she threatened to cut and kill herself with it. pt brought in on an YAAKOV with [place] [employer], was reportedly uncooperative on scene. upon arrival pt denies SI or HI, states she was just trying to get her husbands attention. Coronavirus screen: At this time, the client does not indicate any symptoms associated with coronavirus-19. Ebola Screen: No symptoms or risks identified at this time. Initial Sepsis Screen: Does the patient meet any 2 criteria? No. Patient's initial sepsis screen is negative. Does the patient have a suspected source of infection? No. Patient's initial sepsis screen is negative. Risk Assessment: Do you want to hurt yourself or someone else? Patient reports no desire to harm self or others. Onset of symptoms was March 08, 2024. 14:40 Method Of Arrival: Law Enforcement: [place] kc6 14:40 Acuity: EDIS 2 kc6 Triage Assessment: 14:40 General: Appears in no apparent distress. uncomfortable, obese, well groomed, well kc6 developed, Behavior is cooperative, anxious, crying. Pain: Denies pain. EENT: No signs and/or symptoms were reported regarding the EENT system. Neuro: Level of Consciousness is awake, alert, obeys commands, Oriented to person, place, time, situation, Appropriate for age. Cardiovascular: Capillary refill < 3 seconds. Respiratory: Airway is patent Trachea midline Respiratory effort is even, unlabored, Respiratory pattern is regular, symmetrical. GI: No signs and/or symptoms were reported involving the gastrointestinal system. : No signs and/or symptoms were reported regarding the genitourinary system. Urine is cloudy. Derm: No signs and/or symptoms reported regarding the dermatologic system. Skin is healthy with good turgor, Skin is pink, warm \\T\\ dry. Wound noted left arm Wound is superficial cuts to the LFA. Musculoskeletal: No signs and/or symptoms reported regarding the musculoskeletal system. Circulation, motion, and sensation intact. Capillary refill < 3 seconds, Range of motion: intact in all extremities. 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: 23:49 unknown cp4 Historical: - Allergies: 14:40 No Known Allergies; kc6 - Home Meds: 15:05 clopidogrel 75 mg oral tablet 1 tab daily [Active]; aspirin 81 mg Oral tablet, delayed kc6 release (enteric coated) 1 tab daily [Active]; eszopiclone 3 mg oral tablet 1 tab every day at bedtime [Active]; buspirone 10 mg Oral tablet 1 tab 3 times per day [Active]; alprazolam 2 mg Oral tablet 0.5 tabs 2 times per day [Active]; mirtazapine 7.5 mg Oral tablet 1 tab every day at bedtime [Active]; sertraline 100 mg oral tablet 2 tabs daily [Active]; isosorbide mononitrate 60 mg Oral Tablet, Extended Release 24 hr 1 tab daily [Active]; propranolol 40 mg Oral tablet 1 tab once [Active]; - PMHx: 14:40 Diabetes - IDDM; Heart Murmur; Hyperlipidemia; Myocardial infarction; Panic Attacks; kc6 Anxiety; Depressive disorder; Hypertensive disorder; Hypercholesterolemia; agoraphobia; hypertrophic cardiomyopathy; - PSHx: 14:40 Stented artery; section; hysterectomy; kc6 - Immunization history:: Adult Immunizations up to date. - Infectious Disease History:: Denies. - Social history:: Smoking status: Reported history of juuling and/or vaping. Screenin:40 [facility] ED Fall Risk Assessment (Adult) History of falling in the last 3 months, kc6 including since admission No falls in past 3 months (0 pts) Confusion or Disorientation No (0 pts) Intoxicated or Sedated No (0 pts) Impaired Gait No (0 pts) Mobility Assist Device Used No (0 pt) Altered Elimination No (0 pt) Score/Fall Risk Level 0 - 2 = Low Risk. Abuse screen: Denies threats or abuse. Denies injuries from another. Nutritional screening: No deficits noted. Tuberculosis screening: No symptoms or risk factors identified. Assessment: 14:40 Reassessment: please see triage. [facility] 15:40 Reassessment: Patient appears in no apparent distress at this time. No changes from kc6 previously documented assessment. Patient and/or family updated on plan of care and expected duration. Pain level reassessed. Patient is alert, oriented x 3, equal unlabored respirations, skin warm/dry/pink. 16:42 Reassessment: Patient appears in no apparent distress at this time. No changes from kc6 previously documented assessment. Patient and/or family updated on plan of care and expected duration. Pain level reassessed. Patient is alert, oriented x 3, equal unlabored respirations, skin warm/dry/pink. [facility] at bedside evaluating patient. 17:42 Reassessment: Patient appears in no apparent distress at this time. No changes from kc6 previously documented assessment. Patient and/or family updated on plan of care and expected duration. Pain level reassessed. Patient is alert, oriented x 3, equal unlabored respirations, skin warm/dry/pink. 18:34 Reassessment: Patient appears in no apparent distress at this time. No changes from kc6 previously documented assessment. Patient and/or family updated on plan of care and expected duration. Pain level reassessed. Patient is alert, oriented x 3, equal unlabored respirations, skin warm/dry/pink. 18:40 Reassessment: pt states, I'm going stir crazy in here. How long do I have to stay? How kc6 far do you think I would get if I just left? Why won't you give me my phone?" pt explained hospital protocol. offered TV, and refused. 18:42 Reassessment: Pt comes up to this nurse and states, "I need my stuff. I have to leave." mb9 Verbal reassurance given and pt redirected to room. Pt refuses to stay or listen to nurse. Pt walks out of ER. Miles hardin called and Paul HARRIS called. 18:42 Reassessment: pt discontinued own IV, walking out of ER and kimberly, miles hardin called. kc6 security and Ata Valenzuela RN with pt. 19:05 Reassessment: Patient brought back to room escorted by BRYCE. ll1 19:45 Reassessment: Patient trying to close curtain. Explained that the curtain must stay cp4 open at all times. Patient began yelling "you can't hold me hostage. I am entitled to my privacy.". 20:50 Reassessment: Patient brought back to room with BRYCE and Ata Andrade. Patient crying cp4 and stating "ya'll are holding me hostage. I have rights.". Reassessment: Patient requesting her home medications. States the list is in her chart. When medications were offered patient stated "Ya'll are trying to kill me. I don't take those medications." Patient cannot state what medications she takes. , Willy called to confirm list of medications. 21:20 Reassessment: Miles Dumont called due to patient aggression toward staff. BRYCE notified as cp4 well. Patient began to exit ED with staff following. 21:39 Reassessment: Pt being wheeled back into room via wheelchair with Paul HARRIS and cm10 patient yelling, "I wish I would have just killed myself." Pt continues screaming in the room.. 21:57 Reassessment: Pt brought back to room by PD and staff. Pt screaming, stating " I wish I jb4 would have just killed myself!". 23:00 Reassessment: Patient appears in no apparent distress at this time. Patient and/or cp4 family updated on plan of care and expected duration. Pain level reassessed. Patient is alert, oriented x 3, equal unlabored respirations, skin warm/dry/pink. Patient sleeping. 23:23 Reassessment: update given to patient spouse Willy Brice regarding transfer verbalized kl understanding. Psych: 14:40 [place] Suicide Severity Screening: In the past month, have you wished you were kc6 or wished you could go to sleep and not wake up? Patient responds "No." "In the past month, have you actually had any thoughts of killing yourself?" Patient responds "no." "In your lifetime, have you ever done anything, started to do anything, or prepared to do anything to end your life?" Patient responds "no.". Subjective: Patient's mood is irritable, Delusions are denied, Hallucinations are denied Having thoughts of suicide. Denies suicidal plan. Objective: Patient is cooperative, Speech is normal, Affect is appropriate, Patient has mutilated themselves by superficial cuts to the LFA. Interventions: Removed personal items and placed in bag. Patient placed in hospital gown. Searched person for dangerous items. Urine collected and sent for urine drug test. Belonging list filled out. Safety Checks: Personal items have been removed. Door is closed to patient's room. No visitors are present at this time. Pt denies substance abuse. Commitment: Patient will be a voluntary commitment. Vital Signs: 14:40 BP 167 / 86; Pulse 94; Resp 19 S; Temp 97.3(O); Pulse Ox 95% on R/A; Weight 111.13 kg kc6 (R); Height 5 ft. 2 in. (R); Pain 0/10; 23:30 BP 109 / 95; Pulse 96; Resp 20; Temp 97.3; Pulse Ox 96% ; cp4 14:40 Body Mass Index 44.81 (111.13 kg, 157.48 cm) kc6 14:40 Pain Scale: Adult kc ED Course: 14:17 Patient arrived in ED. mr 14:19 Tammi Tucker PA-C is PHCP. sb4 14:19 Jose Cleary DO is Attending Physician. sb4 14:40 Alejandra Solis, RN is Primary Nurse. kc6 14:40 Arm band placed on. kc6 14:40 Patient has correct armband on for positive identification. Bed in low position. kc6 Valuables inventory done. Locked in safe. See valuables checklist. Door closed. Noise minimized. Visitors limited. Lights dimmed. Moved to private room. Warm blanket given. Pillow given. Patient is placed in psych hold. 14:53 Triage completed. kc6 16:08 contacted [facility] to have a screener evaluate pt. bd 19:29 Safety checks: Items removed: yes. Door open/sign placed on door: no. Other: Curtain ty open Family/friend present: no. Sitter present: Yes. Placed in gown. Bed in low position. Side rails up X 1. Door closed. Noise minimized. Lights dimmed. Notified Charge Nurse of patient is upset that all patients belonging have been removed. 19:38 Notified primary nurse of blood glucose of 278. ty 19:52 Security contacted to retrieve patient home meds to verify with patient. ty 20:05 Security provided patients personal belonging, Nurse speaking with patient to verify ty home meds. 20:07 Diet: Meal offered to patient, patient refused. ty 20:29 Patient called to retrieve patients personal belongings. ty 21:45 [facility] called to contact on-call lockstitch back maker waiting ultrasonic cleaner back. ty 22:07 Transfer warrant faxed to lockstitch back maker. ty 22:56 [facility] contacted for patient transport to mental health facility. ty 23:48 Provided Education on: transfer. cp4 23:48 No provider procedures requiring assistance completed. Patient did not have IV access cp4 during this emergency room visit. Administered Medications: 15:49 Drug: ALPRAZolam PO Tablet 1 mg PO once Route: PO; kc6 16:42 Follow up: Response: No adverse reaction; RASS: Alert and Calm (0) kc6 21:12 CANCELLED (Physician Discretion): [id number] mg PO once sb4 21:12 CANCELLED (Other Intervention Used): busPIRone 10 mg PO once sb4 22:02 Drug: Geodon IM 20 mg IM once Route: IM; Site: right deltoid; jb4 22:30 Follow up: Response: No adverse reaction cp4 22:05 Not Given (Patient Refused): sertraline 200 mg PO once cp4 22:05 Not Given (Patient Refused): mirtazapine7.5 mg PO once cp4 22:05 Not Given (Patient Refused): kwnluopwgm37 mg PO once cp4 22:05 Not Given (Patient Refused): tlpcqlvxqplo87 mg PO once cp4 22:06 Not Given (Patient Refused): dbcnluy99 mg PO once cp4 22:06 Not Given (Patient Refused): eszopiclone 3 mg PO once cp4 22:06 Not Given (Patient Refused): isosorbide mononitrate Extended Release 24 hour Tablet 60 cp4 mg PO once 22:06 Not Given (Patient Refused): busPIRone 15 mg PO once cp4 22:07 Not Given (Patient Refused): ezxkdisfiwb90 mg PO once cp4 Medication: 18:16 VIS not applicable for this client. mb9 Point of Care Testing: Blood Glucose: 19:38 Blood Glucose: 278 mg/dL; cp4 Ranges: Outcome: 17:55 ER care complete, transfer ordered by . sb4 23:48 Transferred to other acute care facility: [facility] report given to cp4 Katelin.. Transfer form completed. X-rays sent w/ patient. 23:48 Condition: stable 23:48 Instructed on the need for transfer, 23:49 Patient left the ED. 4 Signatures: Aneta Emerson Kimberly RN RN [facility], [facility], [facility] mr Nolasco Bobby, RN RN jb4 Sophia He RN RN ll1 Alejandra Solis, RN RN [id number] Tammi Tucker PA-C PADamon sb4 Darnell, Sandra Chow, RN RN mb9 Idalmis Hernández RN RN cm10 Leti Beltran cp4 Taylor Dejesus Tylor ty Corrections: (The following items were deleted from the chart) 22:21 21:45 [facility] called to contact on-call judge oren barbosa
--- NOTE | 2024-03-08 17:56 | EDPHYS ---
Physician Documentation [facility] Name: Chelsi Brice Age: 48 yrs Sex: Female : 1975 Arrival Date: 03/08/2024 Time: 14:16 Bed 19 Private MD: ED Physician Jose Cleary HPI: 03/08 14:39 This 48 yrs old Female presents to ER via Unassigned with complaints of YAAKOV. sb4 14:39 The patient presents to the emergency department with a history of a suicide gesture, sb4 where the patient cut wrists. Onset: The symptoms/episode began/occurred just prior to arrival. Past psychiatric history: Prior diagnosis: depression, anxiety, the patient has not had a prior suicide gesture, the patient has a previous inpatient psychiatric history. Associated signs and symptoms: Pertinent negatives: hallucinations, homicidal ideation, substance abuse, suicide ideation. Patient states that she got into an argument with her this afternoon and grabbed a knife and said she was going to kill herself. He told her not to and then left. She proceeded to inflict multiple small superficial lacerations on her left forearm. She states that she was not trying to harm herself and she does not wish to harm herself, she was just trying to get his attention. called PD who placed her under an YAAKOV. [place] [employer]: 23:49 unknown cp4 Historical: - Allergies: 14:40 No Known Allergies; kc6 - Home Meds: 15:05 clopidogrel 75 mg oral tablet 1 tab daily [Active]; aspirin 81 mg Oral tablet, delayed kc6 release (enteric coated) 1 tab daily [Active]; eszopiclone 3 mg oral tablet 1 tab every day at bedtime [Active]; buspirone 10 mg Oral tablet 1 tab 3 times per day [Active]; alprazolam 2 mg Oral tablet 0.5 tabs 2 times per day [Active]; mirtazapine 7.5 mg Oral tablet 1 tab every day at bedtime [Active]; sertraline 100 mg oral tablet 2 tabs daily [Active]; isosorbide mononitrate 60 mg Oral Tablet, Extended Release 24 hr 1 tab daily [Active]; propranolol 40 mg Oral tablet 1 tab once [Active]; - PMHx: 14:40 Diabetes - IDDM; Heart Murmur; Hyperlipidemia; Myocardial infarction; Panic Attacks; kc6 Anxiety; Depressive disorder; Hypertensive disorder; Hypercholesterolemia; agoraphobia; hypertrophic cardiomyopathy; - PSHx: 14:40 Stented artery; section; hysterectomy; kc6 - Immunization history:: Adult Immunizations up to date. - Infectious Disease History:: Denies. - Social history:: Smoking status: Reported history of juuling and/or vaping. ROS: 14:39 Constitutional: Negative for fever, chills, and weight loss, sb4 14:39 Psych: Positive for suicide gesture, 14:39 All other systems are negative, Exam: 14:39 Head/Face: Normocephalic, atraumatic. Eyes: Extra-ocular motions intact. Periorbital sb4 areas with no swelling, redness, or edema. ENT: Mucous membranes moist. 14:39 Constitutional: The patient appears alert, awake, anxious, Tearful 14:39 Skin: injury, Multiple superficial lacerations/abrasions of left forearm, 14:39 Psych: Behavior/mood is anxious, Affect is calm, Oriented to person, place, time, Patient has no thoughts/intents to harm self or others. Judgement / Insight is normal. Memory is normal. Delusions/hallucinations are not present. Vital Signs: 14:40 BP 167 / 86; Pulse 94; Resp 19 S; Temp 97.3(O); Pulse Ox 95% on R/A; Weight 111.13 kg kc6 (R); Height 5 ft. 2 in. (R); Pain 0/10; 23:30 BP 109 / 95; Pulse 96; Resp 20; Temp 97.3; Pulse Ox 96% ; cp4 14:40 Body Mass Index 44.81 (111.13 kg, 157.48 cm) kc 14:40 Pain Scale: Adult kc6 MDM: 14:19 Patient medically screened. sb4 15:17 External Records Reviewed: [facility] shows patient is prescribed 2 mg xanax daily sb4 by Dr. Stauffer 17:52 Data reviewed: vital signs, nurses notes, lab test result(s), EKG, radiologic studies. sb4 Counseling: I had a detailed discussion with the patient and/or guardian regarding the historical points, exam findings, and any diagnostic results supporting the discharge/admit diagnosis, the presence of at least one elevated blood pressure reading (>120/80) during this emergency department visit, lab results, radiology results, the need to transfer to another facility, [facility] does not immediately have the required specialist. 21:30 ED course: [facility] recommended inpatient. [facility] 21:30 ED course: patient has tried to elope twice, yelling at staff, PD has been contacted [facility] twice now to help diffuse situation. 03/08 14:39 Order name: Acetaminophen; Complete Time: 15:46 [facility] 03/08 14:39 Order name: Basic Metabolic Panel; Complete Time: 15:46 [facility] 03/08 14:39 Order name: CBC with Diff; Complete Time: 15:41 [facility] 03/08 14:39 Order name: ETOH Level; Complete Time: 15:46 [facility] 03/08 14:39 Order name: Hepatic Function; Complete Time: 15:46 [facility] 03/08 14:39 Order name: PT-INR; Complete Time: 15:41 [facility] 03/08 14:39 Order name: Test, Urine; Complete Time: 15:41 [facility] 03/08 14:39 Order name: Ptt, Activated; Complete Time: 15:41 [facility] 03/08 14:39 Order name: Salicylate; Complete Time: 16:07 [facility] 03/08 14:39 Order name: Urinalysis w/ reflexes; Complete Time: 15:41 [facility] 03/08 14:39 Order name: Urine Drug Screen; Complete Time: 22:09 [facility] 03/08 15:42 Order name: Urine Culture [facility] 03/08 19:48 Order name: Glucose, Ancillary Testing; Complete Time: 20:03 [facility] 03/08 14:39 Order name: EKG; Complete Time: 14:39 [facility] 03/08 14:39 Order name: EKG - Nurse/Tech; Complete Time: 15:03 [facility] 03/08 14:39 Order name: IV Saline Lock; Complete Time: 15:23 [facility] 03/08 14:39 Order name: Labs collected and sent; Complete Time: 15:23 [facility] 03/08 14:39 Order name: Suicide Precautions; Complete Time: 15:03 [facility] 03/08 14:39 Order name: Suicide Screening ([place]); Complete Time: 15:03 [facility] EC:17 Rate is 88 beats/min. Rhythm is regular, Normal Sinus Rhythm. TN interval is normal at sb4 156 msec. QRS interval is normal at 76 msec. QT interval is normal at 374 msec. No Q waves. T waves are Normal. No ST changes noted. Clinical impression: No evidence of ischemia. Interpreted by me. Reviewed by me. Administered Medications: 15:49 Drug: ALPRAZolam PO Tablet 1 mg PO once Route: PO; kc6 16:42 Follow up: Response: No adverse reaction; RASS: Alert and Calm (0) kc6 21:12 CANCELLED (Physician Discretion): [id number] mg PO once sb4 21:12 CANCELLED (Other Intervention Used): busPIRone 10 mg PO once sb4 22:02 Drug: Geodon IM 20 mg IM once Route: IM; Site: right deltoid; jb4 22:30 Follow up: Response: No adverse reaction cp4 22:05 Not Given (Patient Refused): sertraline 200 mg PO once cp4 22:05 Not Given (Patient Refused): mirtazapine7.5 mg PO once cp4 22:05 Not Given (Patient Refused): knapufgrgc97 mg PO once cp4 22:05 Not Given (Patient Refused): nwcedjcaoghp38 mg PO once cp4 22:06 Not Given (Patient Refused): jjkmgro39 mg PO once cp4 22:06 Not Given (Patient Refused): eszopiclone 3 mg PO once cp4 22:06 Not Given (Patient Refused): isosorbide mononitrate Extended Release 24 hour Tablet 60 cp4 mg PO once 22:06 Not Given (Patient Refused): busPIRone 15 mg PO once cp4 22:07 Not Given (Patient Refused): jasspkgactu99 mg PO once cp4 Point of Care Testing: Blood Glucose: 19:38 Blood Glucose: 278 mg/dL; cp4 Ranges: Critical Glucose Levels:Adult <50 mg/dl or >400 mg/dl <40 mg/dl or >180 mg/dl Disposition: 14:41 I was immediately available on-site in the Emergency Department for consultation in the tn3 care of the patient. Disposition Summary: 03/08/24 17:55 Transfer Ordered Notes: Transfer Location: Psych Facility sb4 Reason: Higher level of care sb4 Condition: Fair sb4 Problem: new sb4 Symptoms: are unchanged sb4 Accepting Physician: psych(03/08/24 23:49) cp4 Diagnosis - Suicidal ideations sb4 Forms: - Medication Reconciliation Form sb4 - SBAR form sb4 Critical care time excluding procedures: 21:47 Critical care time: Bedside Care: 25 minutes, Consultation: 10 minutes. Total time: 35 sb4 minutes Signatures: Dispatcher [employer] EDBobby Jeong, RN RN jb4 Jose Cleary DO DO ms3 Alejandra Solsi RN RN kc6 Tammi Tucker, PANyC PA-C sb4 Leti Beltran cp4 Corrections: (The following items were deleted from the chart) 14:39 14:39 ACETAMINOPHEN+C.LAB.BRZ ordered. EDMS EDMS 14:39 14:39 BASIC METABOLIC PANEL+C.LAB.BRZ ordered. EDMS EDMS 14:39 14:39 CBC+H.LAB.BRZ ordered. EDMS EDMS 14:39 14:39 ETHANOL+C.LAB.BRZ ordered. EDMS EDMS 14:39 14:39 HEPATIC FUNCTION+C.LAB.BRZ ordered. EDMS EDMS 14:39 14:39 PROTIME (+INR)+COAG.LAB.BRZ ordered. EDMS EDMS 14:39 14:39 Test, Urine+UC.LAB.BRZ ordered. EDMS EDMS 14:39 14:39 PTT, ACTIVATED+COAG.LAB.BRZ ordered. EDMS EDMS 14:39 14:39 SALICYLATE+C.LAB.BRZ ordered. EDMS EDMS 14:39 14:39 Urinalysis+U.LAB.BRZ ordered. EDMS EDMS 14:39 14:39 URINE DRUG SCREEN+UC.LAB.BRZ ordered. EDMS EDMS 21:12 19:35 Propranolol PO 40 mg PO once ordered. sb4 sb4 21:12 19:35 busPIRone 10 mg PO once ordered. sb4 sb4 23:49 17:55 psych sb4 cp4
[2024-03-08] MEDS ORDERED: CLOPIDOGREL 75 MG TABLET ONE (19:41)
[2024-03-08] MEDS ORDERED: PROPRANOLOL HCL 40 MG TAB ONE (19:42)
[2024-03-08] MEDS ORDERED: ASPIRIN EC 81 MG TAB PO ONE (19:42)
[2024-03-08] MEDS ORDERED: MIRTAZAPINE 15 MG TAB ONE (19:44)
[2024-03-08] MEDS ORDERED: METOPROLOL XL 50 MG TAB PO ONE (21:00)
[2024-03-08] MEDS ORDERED: BUSPIRONE HCL 5 MG TABLET ONE (21:00)
[2024-03-08] MEDS ORDERED: ESZOPICLONE 1 MG TAB ONE (21:00)
[2024-03-08] MEDS ORDERED: ATORVASTATIN 80 MG TAB ONE (21:01)
[2024-03-08] MEDS ORDERED: SERTRALINE HCL 100 MG TAB ONE (21:05)
[2024-03-08] MEDS ORDERED: ISOSORBIDE MONO SR 60 MG TAB PO ONE (21:05)
[2024-03-08] MEDS ORDERED: WATER FOR INJ,STERILE 10 ML ONE (21:41)
[2024-03-08] MEDS ORDERED: ZIPRASIDONE MESYLA 20 MG/VIAL IM ONE (21:41)
[2024-03-08 22:06] LABS: Barbiturates NEGATIVE (NEGATIVE); Benzodiazepines POSITIVE (NEGATIVE); Cocaine NEGATIVE (NEGATIVE); METHAMPHETAM NEGATIVE (NEGATIVE); Methadone NEGATIVE (NEGATIVE); Opiates NEGATIVE (NEGATIVE); Phencyclidine NEGATIVE (NEGATIVE); THC Cannibis NEGATIVE (NEGATIVE)
[2024-03-08 23:54] VITALS: TEMP 97.3
[2024-03-08 23:55] VITALS: BP 109/95; O2SAT 96
== END 2024-03-08 23:49 ==
LOC: ER 14:16
DX: R45.851 Suicidal ideations (principal); E11.9 Type 2 diabetes mellitus without complications; I10 Essential (primary) hypertension; I25.2 Old myocardial infarction; Z79.82 Long term (current) use of aspirin
CPT/HCPCS: 87088; 85025; 81001; 87086; 80048; 36415; 81025; 85610; 82947; 80076; 85730; 80307; 80143; 80179; 82077; J3486